=== PATIENT | male | born 1945 | race Caucasian/White ===

== ENCOUNTER 2017-05-18 22:22 | Observation (INO) ==
[2017-05-18 22:47] LABS: Bilirubin,Urine Small (Negative); Blood,Urine Large (Negative); Clarity,Urine Cloudy (Clear); Color,Urine Dark Yellow (Yellow); Glucose,Urine (UA) Normal (Normal); Ketones,Urine 15 mg/dL (Negative); Leukocyte Esterase,Urine Small (Negative); Nitrite,Urine Negative (Negative); PH,Urine 5.5 pH Units (5.0-8.0); Protein,Urine 30 mg/dL (Neg-Trace); Specific Gravity,Urine 1.027 (1.010-1.025); Urobilinogen,Urine Normal (Normal)
[2017-05-18] MEDS ORDERED: 0.9 % Sodium Chloride 1,000 ML IVC ONE (22:49)
[2017-05-18] MEDS ORDERED: *HR* Morphine 2 MG/ML SYRINGE IVP ONE (22:49)
[2017-05-18] MEDS ORDERED: Ondansetron 4 MG/2 ML VIAL IVP ONE ×2 (22:49→23:16)
[2017-05-18 22:50] LABS: Bacteria,Urine None Seen per hpf (None-Few); Hyaline Casts,Urine None Seen per lpf (None-Few); RBC,Urine TNTC per hpf (0-3); Squamous Epithelial Cell,Urine Moderate per lpf (None-Few)
[2017-05-18 23:08] LABS: Basophils % 0.2 %; Eosinophils % 0.3 %; Hematocrit 52.2 % (37.5-50.1); Hemoglobin 17.6 g/dL (12.9-16.9); Immature Granulocytes % 0.4 % (0-4); Lymphocytes # 0.9 K/mcL (0.6-4.6); Lymphocytes % 7.6 %; Mean Corpuscular HGB Conc 33.7 g/dL (31.6-35.5); Mean Corpuscular Hemoglobin 28.8 pg (28.0-33.3); Mean Corpuscular Volume 85.3 fL (83.0-100.0); Mean Platelet Volume 9.7 fL (9.4-12.4); Monocytes # 0.6 K/mcL (0.0-1.3); Monocytes % 5.1 %; Neutrophils # 10.5 K/mcL (1.6-8.9); Platelet Count 278 K/mcL (140-400); Red Blood Count 6.12 M/mcL (4.19-5.50); Red Cell Distribution Width 12.4 % (11.5-14.5); Segmented Neutrophils % 86.4 %
[2017-05-18] MEDS ORDERED: Ketorolac 15 MG/ML VIAL IVP ONE (23:16)
[2017-05-18 23:23] LABS: Alanine Aminotransferase 17 Units/L (0-55); Albumin 4.5 g/dL (3.5-5.0); Albumin/Globulin Ratio 1.4 (1.1-2.2); Alkaline Phosphatase 79 Units/L (38-126); Aspartate Amino Transferase 15 Units/L (5-34); BUN/Creatinine Ratio 17 (6-26); Bilirubin,Direct 0.4 mg/dL (0.0-0.5); Bilirubin,Indirect 0.5 mg/dL (0.0-1.2); Bilirubin,Total 0.9 mg/dL (0.2-1.2); Blood Urea Nitrogen 20 mg/dL (8-26); Carbon Dioxide 23 mEq/L (19-29); Chloride 105 mEq/L (98-109); Globulin 3.2 g/dL (2.4-3.5); Glucose 142 mg/dL (70-99); Osmolality,Calculated 295 (280-300); Potassium 4.1 mEq/L (3.5-4.5); Sodium 140 mEq/L (136-145); Total Protein 7.7 g/dL (6.0-8.3); eGFR For African Americans > 60 (> 60); eGFR For Non-African Americans > 60 (> 60)
--- NOTE | 2017-05-18 23:24 | Emergency Department Note ---
Disposition Clinical Impression: Ureterolithiasis Disposition: Admitted As Inpatient Condition: Good Abdominal Pain HPI - General Chief Complaint: ED Abdominal Pain Stated Complaint: L Flank Pain Time Seen by Provider: 05/18/17 22:31 Source: patient, family Mode of arrival: private vehicle Limitations: no limitations Nursing Notes Reviewed: Yes Vital Signs Reviewed: Yes - History of Present Illness Pt Subjective Complaint: flank pain Onset (ago): hour(s) Consistency: constant Location: L flank Pain Severity: severe Pain Scale: 7 Quality: stabbing Radiation: LLQ Improves with: nothing Worsens with: nothing Context: history of similar episodes (once, about 10 years ago - kidney stone) Associated symptoms: Reports: nausea, vomiting. Denies: diarrhea, fever, chills , constipation, dysuria, hematemesis, hematochezia, melena, hematuria, anorexia , syncope Treatments prior to arrival: none - Related Data Previous Rx's Medication Instructions Recorded Acetaminophen [Tylenol] 500 mg PO Q6HR PRN #20 tablet 03/06/17 Allergies Allergy/AdvReac Type Severity Reaction Status Date / Time No Known Allergies Allergy Verified 05/18/17 22:27 All systems ED: reviewed and negative except as stated. Review of Systems: As Per HPI Constitutional: Denies: fever, chills Cardiovascular: Denies: chest pain, palpitations Respiratory: Denies: dyspnea Gastrointestinal: Reports: as per HPI, abdominal pain, nausea, vomiting. Denies : diarrhea Genitourinary: Denies: urgency, dysuria, frequency, hematuria, discharge Musculoskeletal: Reports: as per HPI, back pain. Denies: neck pain, joint swelling, arthralgia Integumentary: Denies: rash Neurological: Denies: headache Hematological/Lymphatic: Reports: easy bruising. Denies: easy bleeding Abdominal Pain PMH - Past Medical History Medical history: Reports: asthma, diabetes, GERD, hypertension, kidney stones, myocardial infarction Male Surgical History: Reports: no surgical history Psychiatric history: Reports: no psych history - Social History Smoking status: Never smoker Alcohol use: Reports: occasionally Drug use: Reports: none Physical Exam - General Limitations: no limitations General appearance: alert, in no apparent distress - Head Head exam: atraumatic, normocephalic, normal inspection - Eye Eye exam: Present: normal appearance, PERRL. Absent: scleral icterus, conjunctival injection, periorbital swelling - ENT ENT exam: mucous membranes moist - Neck Neck exam: Present: normal inspection - Chest Chest inspection: Present: normal inspection - Respiratory Respiratory exam: Present: normal lung sounds bilaterally. Absent: respiratory distress - Cardiovascular Cardiovascular exam: Present: regular rate, normal rhythm, normal heart sounds - Abdominal Exam Abdominal exam: Present: soft, tenderness, normal bowel sounds. Absent: distention, guarding, rebound, rigidity, mass, pulsatile mass Abdominal tenderness: Present: LLQ, mild - Extremities Exam Extremities exam: Present: normal inspection - Back Exam Back exam: Present: normal inspection, CVA tenderness (L) - Neurological Exam Neurological exam: Present: alert, oriented X3, CN II-XII intact - Psychiatric Psychiatric exam: Present: normal affect, normal mood - Skin Skin exam: Present: warm, dry, intact, normal color Course Course Narrative: Patient presents from home with family for evaluation of acute onset of Left flank pain with intermittent N/V that began at 9pm while sitting at a computer. He denies fever, chills, urinary retention, diarrhea. Last oral intake was at lunch time. He has had pain like this in the past - about 10 years ago - he was diagnosed with a kidney stone, which he passed. Will check labs, obtain a CT and treat his symptoms. Pain and nausea were better transiently. Both returned. More meds given. Labs show hematuria, polycythemia, and mildly elevated blood glucose. - Consultations Consultation #1: Hospitalist consulted for admission Time: 00:27 Vital Signs Temperature 97.5 F L 05/18/17 22:24 Pulse Rate 61 05/18/17 22:24 Respiratory Rate 16 05/18/17 22:24 Blood Pressure 158/86 05/18/17 22:24 O2 Sat by Pulse Oximetry 99 05/18/17 22:24 Temperature 98.3 F 05/19/17 01:00 Pulse Rate 61 05/18/17 23:27 Respiratory Rate 18 05/19/17 01:00 Blood Pressure 138/78 05/19/17 01:00 O2 Sat by Pulse Oximetry 97 05/18/17 23:27 Oxygen Delivery Oxygen Delivery Room Air Abdominal Pain - Lab Data Result diagrams: 05/18/17 22:52 05/18/17 22:52 Lab Results 05/18/17 05/18/17 05/18/17 Range/Units 22:37 22:52 22:52 WBC 12.2 H (4.3-11.1) K/mcL RBC 6.12 H (4.19-5.50) M/mcL Hgb 17.6 H (12.9-16.9) g/dL Hct 52.2 H (37.5-50.1) % MCV 85.3 (83.0-100.0) fL MCH 28.8 (28.0-33.3) pg MCHC 33.7 (31.6-35.5) g/dL RDW 12.4 (11.5-14.5) % Plt Count 278 (140-400) K/mcL MPV 9.7 (9.4-12.4) fL Immature Gran % 0.4 (0-4) % Seg Neutrophils % 86.4 % Lymphocytes % 7.6 % Monocytes % 5.1 % Eosinophils % 0.3 % Basophils % 0.2 % Neutrophils # 10.5 H (1.6-8.9) K/mcL Lymphocytes # 0.9 (0.6-4.6) K/mcL Monocytes # 0.6 (0.0-1.3) K/mcL Eosinophils # 0.0 (0.0-0.6) K/mcL Basophils # 0.0 (0.0-0.2) K/mcL Sodium 140 (136-145) mEq/L Potassium 4.1 (3.5-4.5) mEq/L Chloride 105 (98-109) mEq/L Carbon Dioxide 23 (19-29) mEq/L BUN 20 (8-26) mg/dL Creatinine 1.18 (0.72-1.25) mg/dL Est GFR ( Amer) > 60 (> 60) Est GFR (Non-Af Amer) > 60 (> 60) BUN/Creatinine Ratio 17 (6-26) Glucose 142 H (70-99) mg/dL Calculated Osmolality 295 (280-300) Calcium 10.0 (8.6-10.8) mg/dL Total Bilirubin 0.9 (0.2-1.2) mg/dL Direct Bilirubin 0.4 (0.0-0.5) mg/dL Indirect Bilirubin 0.5 (0.0-1.2) mg/dL AST 15 (5-34) Units/L ALT 17 (0-55) Units/L Alkaline Phosphatase 79 (38-126) Units/L Serum Total Protein 7.7 (6.0-8.3) g/dL Albumin 4.5 (3.5-5.0) g/dL Globulin 3.2 (2.4-3.5) g/dL Albumin/Globulin Ratio 1.4 (1.1-2.2) Urine Color Dark Yellow (Yellow) Urine Clarity Cloudy A (Clear) Urine pH 5.5 (5.0-8.0) pH Units Ur Specific [place] 1.027 H (1.010-1.025) Urine Protein 30 H (Neg-Trace) mg/dL Urine Glucose (UA) Normal (Normal) mg/dL Urine Ketones 15 H (Negative) mg/dL Urine Blood Large H (Negative) Urine Nitrite Negative (Negative) Urine Bilirubin Small H (Negative) Urine Urobilinogen Normal (Normal) mg/dL Ur Leukocyte Esterase Small H (Negative) Urine Microscopic RBC TNTC H (0-3) per hpf Urine Microscopic WBC 3-5 H (0-3) per hpf Ur Squamous Epith Cells Moderate H (None-Few) per lpf Urine Bacteria None Seen (None-Few) per hpf Hyaline Casts None Seen (None-Few) per lpf Ur Culture Indicated? YES A (NO) Attestation Statement - Attestation Attestation: I, Nando Grigsby, examined this patient and my medical decision-making was reviewed with the BENDER HAND/PA/Advanced Practice Nurse/Resident Physician. I agree with the documented findings, disposition and treatment plan as described except to the extent set forth below. 71-year-old male presents to the emergency department with concerns of left flank pain for multiple hours prior to arrival. +associated nausea and vomiting. Abdomen has generalized mild tender to palpation emergency department. CT of the abdomen and pelvis reveals a 5 mm ureteral stone causing obstruction. Patient does not feel comfortable returning home because he has had stones which were needed surgical removal in the past. PA admitted the patient to the hospitalist for further care and evaluation.
--- NOTE | 2017-05-19 01:47 | Internal Med History&Physical ---
Date of Encounter: 05/19/17 Time of Encounter: 01:45 Assessment and Plan (1) Left ureteral calculus Current visit: Yes Status: Acute He has a 5 mm left UVJ stone with hydronephrosis and hydroureter. It is small enough that it could pass with medical measures and therefore I will place the patient in observation, we will treat him with aggressive IV fluid hydration, IV morphine for pain, Zofran for nausea and start Flomax 0.4 mg daily. We will strain the urine and send the stone for testing. We will consult urology in the morning in case the stone does not pass. Keep him nothing by mouth. (2) Coronary artery disease Current visit: Yes Status: Acute Continue with dual antiplatelet therapy. Qualifiers: Coronary Disease-Associated Artery/Lesion type: [place] artery [place] vs. transplanted heart: [place] heart Associated angina: without angina Qualified Code(s): I25.10 - Atherosclerotic heart disease of [place] coronary artery without angina pectoris (3) Dehydration Current visit: Yes Status: Acute CBC reveals hemoconcentration and clinically appears dry consistent with dehydration. We will treat him with aggressive IV fluid hydration. (4) Asthma Current visit: Yes Status: Acute Inhaled albuterol when necessary. Qualifiers: Asthma severity: mild intermittent Asthma complication type: uncomplicated Qualified Code(s): J45.20 - Mild intermittent asthma, uncomplicated (5) DVT prophylaxis Current visit: Yes Status: Acute Encourage early ambulation. No pharmacological prophylaxis needed. (6) BPH (benign prostatic hyperplasia) Current visit: Yes Status: Acute I suspect some BPH based on symptoms. I recommend Flomax 0.4 daily upon discharge for one month and follow-up with urology. Qualifiers: Lower urinary tract symptom presence: symptoms present Lower urinary tract symptom detail: weak urinary stream Qualified Code(s): N40.1 - Benign prostatic hyperplasia with lower urinary tract symptoms; R39.12 - Poor urinary stream Internal Medicine - H&P: HPI Chief complaint: Left flank pain Admitted From: Emergency Dept Plans for Post Hospital Care: Home History of present illness: Mr. Roque is a 71 year old male with past medical history of hypertension, hypercholesterolemia and coronary artery disease status post LA and stent placement who presented to the hospital due to 1 day of severe sharp left flank pain associated with chills and diaphoresis, mild nausea no vomiting. Denies fevers. Denies dysuria hematuria and frequency, reports weak urinary stream. Review of systems: Seasonal allergies and wheezing secondary to asthma otherwise negative Family history positive for depression in several family members, negative for premature coronary artery disease. Social history: Lifelong nonsmoker, denies alcohol abuse denies recreational drug use Past Med Surg Social Fam HX - Past Medical History Medical history: asthma, diabetes, GERD, hypertension, kidney stones, myocardial infarction Psychiatric history: no psych history - Past Surgical History Surgical History: non-contributory - Social History Smoking Status: Never smoker Smokeless Tobacco Status: No Alcohol use: occasionally Drug use: none Internal Medicine - H&P: Meds Acetaminophen [Tylenol] 500 mg PO Q6HR PRN #20 tablet 03/06/17 [Rx] Allergies No Known Allergies Allergy (Verified 05/18/17 22:27) All Systems PM: A 10-system review of systems was performed and is negative for pertinent findings except as documented above in the HPI. - Constitutional Vitals: Temp Pulse Resp BP Pulse Ox 98.3 F 61 18 138/78 97 05/19/17 01:00 05/18/17 23:27 05/19/17 01:00 05/19/17 01:00 05/18/17 23:27 - Eye Eye exam: Present: PERRL, conjuntiva pink, sclera anicteric Pupils: Present: PERRL - Respiratory Respiratory exam: Present: CTAB. Absent: accessory muscle use, rales, rhonchi, wheezes - Cardiovascular Cardiovascular exam: Present: RRR, +S1, +S2. Absent: diastolic murmur, gallop, rubs, systolic murmur - GI/Abdominal GI/Abdominal exam: Present: normal bowel sounds, soft, no peritoneal signs. Absent: distended, tenderness - Extremities Exam Extremities exam: Present: warm, radial pulses palpable and symmetrical. Absent : calf tenderness, cyanotic, pedal edema - Neurological Exam Neurological exam: Present: CN II-XII intact, oriented X3, no focal deficits. Absent: pronater drift, facial droop, speech deficit - Skin Skin exam: Present: dry, intact Internal Med - H&P Results - Labs CBC & Chem 7: 05/18/17 22:52 05/18/17 22:52 - Impressions CT of the abdomen of pelvis reviewed by myself shows a 0.5 cm ureteral stone just above the left UV junction with mild hydroureteronephrosis.
[2017-05-19] MEDS ORDERED: Ondansetron 4 MG/2 ML VIAL IVP PRN (01:54)
[2017-05-19] MEDS ORDERED: *HR* HYDROcodone/Acet 5/325 mg TABLET PO PRN (01:54)
[2017-05-19] MEDS ORDERED: Acetaminophen 325 MG TABLET PO PRN (01:54)
[2017-05-19] MEDS ORDERED: *HR* Morphine 2 MG/ML SYRINGE IVP PRN (01:54)
[2017-05-19] MEDS ORDERED: Naloxone 0.4 MG/ML INJ IVP PRN (01:54)
[2017-05-19] MEDS: 0.9 % Sodium Chloride 1,000 ML IVC SCH ×2 (02:42→06:39)
[2017-05-19 05:49] LABS: Basophils % 0.2 %; Hematocrit 45.8 % (37.5-50.1); Immature Granulocytes % 0.4 % (0-4); Lymphocytes # 0.5 K/mcL (0.6-4.6); Lymphocytes % 5.1 %; Mean Corpuscular HGB Conc 33.4 g/dL (31.6-35.5); Mean Corpuscular Hemoglobin 28.5 pg (28.0-33.3); Mean Corpuscular Volume 85.4 fL (83.0-100.0); Mean Platelet Volume 10.3 fL (9.4-12.4); Monocytes # 0.6 K/mcL (0.0-1.3); Monocytes % 5.8 %; Neutrophils # 9.2 K/mcL (1.6-8.9); Platelet Count 220 K/mcL (140-400); Red Blood Count 5.36 M/mcL (4.19-5.50); Red Cell Distribution Width 12.4 % (11.5-14.5); Segmented Neutrophils % 88.5 %
[2017-05-19 05:59] LABS: BUN/Creatinine Ratio 21 (6-26); Blood Urea Nitrogen 20 mg/dL (8-26); Carbon Dioxide 21 mEq/L (19-29); Chloride 109 mEq/L (98-109); Sodium 139 mEq/L (136-145)
[2017-05-19 06:00] LABS: Calcium 8.7 mg/dL (8.6-10.8); Glucose 112 mg/dL (70-99); Osmolality,Calculated 291 (280-300); eGFR For African Americans > 60 (> 60); eGFR For Non-African Americans > 60 (> 60)
[2017-05-19 06:05] LABS: Hemoglobin 15.3 g/dL (12.9-16.9)
--- NOTE | 2017-05-19 09:28 | Event Note ---
Date of Encounter: 05/19/17 Time of Encounter: 09:10 Doing well. Denies any pain today. NO nausea or vomiting. No fever or chills. Having good urine output. Continue IV fluids. Urology consult. Continue flomax.
[2017-05-19] MEDS: Aspirin Enteric Coated 81 MG Tablet PO SCH (09:41)
--- NOTE | 2017-05-19 10:28 | Urology - Consult Note ---
Date of Encounter: 05/19/17 Time of Encounter: 10:25 - Assessment and Plan (1) Hydronephrosis of left kidney Current Visit: Yes Status: Acute Assessment and plan: secondary to stone will resolve with either passage or removal (2) Left ureteral calculus Current Visit: Yes Status: Acute Assessment and plan: Patient will continue with medical expulsion therapy today. If patient fails to pass the stone by tomorrow may consider stone extraction. Urology CN:HPI Consult date: 05/19/17 Reason for consult Urology: Other (left ureteral stone) Requesting physician: John Worley History of present illness: Juan is a 71-year-old male with a history of recent admission to the hospital secondary to severe left-sided flank pain where he was found have a distal 3 x 5 mm ureteral stone on the left side. Patient had mild proximal hydronephrosis. No fevers. No nausea or vomiting. Past Med Surg Social Fam HX - Past Medical History Medical history: asthma, diabetes, GERD, hypertension, kidney stones, myocardial infarction Psychiatric history: no psych history - Past Surgical History Surgical History: non-contributory - Social History Smoking Status: Never smoker Smokeless Tobacco Status: No Alcohol use: occasionally Drug use: none Medications and Allergies Clopidogrel [Plavix] 75 mg PO DAILY 05/19/17 [History] Lisinopril [Zestril] 5 mg PO DAILY 05/19/17 [History] Metoprolol Succinate 25 mg PO DAILY 05/19/17 [History] Pantoprazole Sodium 40 mg PO 05/19/17 [History] Salmeterol Xinafoate [Serevent Diskus] 05/19/17 [History] Sertraline [Zoloft] 100 mg PO DAILY 05/19/17 [History] Vilazodone HCl [Viibryd] 40 mg PO DAILY 05/19/17 [History] Allergies No Known Allergies Allergy (Verified 05/18/17 22:27) Review of Systems - Constitutional no chills, no fever(s) - EENT Nose, mouth and throat: no dizziness - Cardiovascular no chest pain - Respiratory no cough - Gastrointestinal abdominal pain - Musculoskeletal back pain - Integumentary as per HPI, no erythema - Neurological no confusion Exam Initial Vital Signs Temp Pulse Resp BP Pulse Ox 97.5 F L 61 16 158/86 99 05/18/17 22:24 05/18/17 22:24 05/18/17 22:24 05/18/17 22:24 05/18/17 22:24 - General physical appearance Present: well developed - Eyes Present: PERRL - ENT Present: normal nares - Neck Present: no masses - Respiratory Present: normal respiratory effort - Cardiovascular Cardiovascular exam IM: RRR - Abdomen Abdomen: Present: soft - Integumentary Present: no rash - Neurologic Present: normal coordination Urology Results - Labs 05/19/17 04:13 05/19/17 04:13 Abnormal lab results Neutrophils # 9.2 K/mcL (1.6-8.9) H 05/19/17 04:13 Lymphocytes # 0.5 K/mcL (0.6-4.6) L 05/19/17 04:13 Glucose 112 mg/dL (70-99) H 05/19/17 04:13 POC Glucose 105 (58-89) H 05/19/17 06:14 Urine Clarity Cloudy (Clear) A 05/18/17 22:37 Ur Specific [place] 1.027 (1.010-1.025) H 05/18/17 22:37 Urine Protein 30 mg/dL (Neg-Trace) H 05/18/17 22:37 Urine Ketones 15 mg/dL (Negative) H 05/18/17 22:37 Urine Blood Large (Negative) H 05/18/17 22:37 Urine Bilirubin Small (Negative) H 05/18/17 22:37 Ur Leukocyte Esterase Small (Negative) H 05/18/17 22:37 Urine Microscopic RBC TNTC per hpf (0-3) H 05/18/17 22:37 Urine Microscopic WBC 3-5 per hpf (0-3) H 05/18/17 22:37 Ur Squamous Epith Cells Moderate per lpf (None-Few) H 05/18/17 22:37 Ur Culture Indicated? YES (NO) A 05/18/17 22:37 Diabetes panel 05/19/17 Range/Units 04:13 Sodium 139 (136-145) mEq/L Potassium 4.0 (3.5-4.5) mEq/L Chloride 109 (98-109) mEq/L Carbon Dioxide 21 (19-29) mEq/L BUN 20 (8-26) mg/dL Creatinine 0.96 (0.72-1.25) mg/dL Glucose 112 H (70-99) mg/dL Calcium 8.7 (8.6-10.8) mg/dL Calcium panel 05/19/17 Range/Units 04:13 Calcium 8.7 (8.6-10.8) mg/dL Pituitary panel 05/19/17 Range/Units 04:13 Sodium 139 (136-145) mEq/L Potassium 4.0 (3.5-4.5) mEq/L Chloride 109 (98-109) mEq/L Carbon Dioxide 21 (19-29) mEq/L BUN 20 (8-26) mg/dL Creatinine 0.96 (0.72-1.25) mg/dL Glucose 112 H (70-99) mg/dL Calcium 8.7 (8.6-10.8) mg/dL Adrenal panel 05/19/17 Range/Units 04:13 Sodium 139 (136-145) mEq/L Potassium 4.0 (3.5-4.5) mEq/L Chloride 109 (98-109) mEq/L Carbon Dioxide 21 (19-29) mEq/L BUN 20 (8-26) mg/dL Creatinine 0.96 (0.72-1.25) mg/dL Glucose 112 H (70-99) mg/dL Calcium 8.7 (8.6-10.8) mg/dL All other labs normal. - Imaging CT scan - abdomen: image reviewed CT scan - pelvis: image reviewed Consult Discharge Plan - Plan Referrals: Pierre Galeana Jr, MD [Primary Care Provider] -
--- NOTE | 2017-05-20 07:55 | Urology Progress Note ---
Date of Encounter: 05/20/17 Time of Encounter: 07:54 - Assessment and Plan (1) Hydronephrosis of left kidney Current Visit: Yes Status: Acute Assessment and plan: will get kub today. (2) Left ureteral calculus Current Visit: Yes Status: Acute Progress Note Narrative: patient seen. no pain. states has not passed stone. Objective Initial Vital Signs Temp Pulse Resp BP Pulse Ox 97.5 F L 61 16 158/86 99 05/18/17 22:24 05/18/17 22:24 05/18/17 22:24 05/18/17 22:24 05/18/17 22:24 - Labs 05/19/17 04:13 05/19/17 04:13 Consult Discharge Plan - Plan Referrals: Pierre Galeana Jr, MD [Primary Care Provider] -
--- NOTE | 2017-05-20 11:33 | Anesthesia Evaluation PreOp ---
Date of Encounter: 05/20/17 Time of Encounter: 11:30 - Past History Planned Operation: Left Ureteral stone Extraction Cardiac History: AL, HTN, Cardiac Stent (x1 LAURA 2008), Other (CAD) Pulmonary History: Asthma [employer] History: Denies Any Significant HX Other Medical History: Renal (Stones), Diabetes Type II, GERD Anesthesia History: No Prior Anesthetic Complications, Past Anesthesia Alcohol Use: occasionally Drug use: none Medications and Allergies Clopidogrel [Plavix] 75 mg PO DAILY 05/19/17 [History] Lisinopril [Zestril] 5 mg PO DAILY 05/19/17 [History] Metoprolol Succinate 25 mg PO DAILY 05/19/17 [History] Pantoprazole Sodium 40 mg PO DAILY 05/19/17 [History] Salmeterol Xinafoate [Serevent Diskus] 1 puff IH BID 05/19/17 [History] Sertraline [Zoloft] 100 mg PO DAILY 05/19/17 [History] Vilazodone HCl [Viibryd] 40 mg PO DAILY 05/19/17 [History] Allergies No Known Allergies Allergy (Verified 05/18/17 22:27) - Meds/Allergy Pre-op Review Medications Reviewed: Yes Allergies Reviewed: Yes Beta Blockers on Current Med List: No Anesthesia Results - Labs 05/19/17 04:13 05/19/17 04:13 Anesthesia Exam O2 Sat Weight 69.6 kg O2 Sat by Pulse Oximetry 95 O2 Sat by Pulse Oximetry 95 O2 Sat by Pulse Oximetry 96 O2 Sat by Pulse Oximetry 96 Vital Signs Temp Pulse Resp BP Pulse Ox 97.5 F L 61 16 158/86 99 05/18/17 22:24 05/18/17 22:24 05/18/17 22:24 05/18/17 22:24 05/18/17 22:24 Vital Signs/O2 Sat, Most Current Temp Pulse Resp BP Pulse Ox 97.8 F 58 18 118/50 95 05/20/17 06:44 05/20/17 06:44 05/20/17 06:44 05/20/17 06:44 05/20/17 06:44 Height: 6'9" Weight: 153 - HEENT Pupil (Motor): Pupils equal, EOMI Mallampati: II Teeth: Normal Oral Opening: Greater than 3 - [employer] LOC: Oriented [employer] Motor: Normal RUE, Normal LUE, Normal RLE, Normal LLE, Normal Face [employer] Sensory: Normal: RUE, LUE, RLE, LLE, Face - Cardiac Rhythm: Regular Murmur: None JVD: No Carotid Bruit: No - Pulmonary Breath Sounds: bilateral Clear Respiratory Effort: Symmetrical Anesthesia Assess/Plan ASA Score: 3 Modified David Scale for Level of Consciousness: Cooperative, oriented, and tranquil Anesthetic Plan: General Autologous Blood: Yes Monitoring Plan: Standard Monitors Recovery Plan: PACU
[2017-05-20] MEDS ORDERED: *HR* Propofol 200 MG/20 ML VIAL IVP ONE (12:09)
[2017-05-20] MEDS ORDERED: Ondansetron 4 MG/2 ML VIAL ONE (12:09)
[2017-05-20] MEDS ORDERED: *HR* Midazolam HCl 2 MG/2 ML VIAL ONE (12:09)
[2017-05-20] MEDS ORDERED: Lidocaine -MPF 4% 5 ML AMPUL ONE (12:09)
[2017-05-20] MEDS ORDERED: Dexamethasone 4 MG/ML VIAL ONE (12:09)
[2017-05-20] MEDS ORDERED: *HR* FentaNYL (PF) 100 MCG/2 ML VIAL ONE (12:09)
[2017-05-20] MEDS ORDERED: Lidocaine -MPF 2% 2 ML VIAL ONE (12:09)
[2017-05-20] MEDS: Aspirin Enteric Coated 81 MG Tablet PO SCH (12:55)
[2017-05-20] MEDS ORDERED: ceFAZolin 2,000 MG in D5% in Water (Mini-Bag+) 100 ML IVPB ONE ×2 (13:24→15:21)
[2017-05-20] MEDS ORDERED: *HR* Promethazine 25 MG/ML VIAL IVP PRN (13:31)
[2017-05-20] MEDS: *HR* HYDROmorphone (PF) 1 MG/ML SYRINGE IVP PRN ×2 (14:07→14:12)
--- NOTE | 2017-05-20 14:33 | Anesthesia Evaluation Post Op ---
Date of Encounter: 05/20/17 Time of Encounter: 14:33 - Vital Signs Vital Signs: vss - Lungs Lungs: Clear Ascult./Percussion - Airway Airway: Non-obstructed - Cardiovascular Baseline Rhythm - Mental Status Mental Status: Alert & Oriented, Answers Appropriately - Pain Pain Scale used: [place] (Faces) - Nausea Vomiting Nausea Vomiting: Not Present - Hydration Hydration: Ice chips - Discharge PostOp Status: Transfer Patient to floor
[2017-05-20] MEDS ORDERED: CeFAZolin Pre 2,000 MG/100 ML 2,000 MG/100 ML BAG IVPB ONE (15:00)
[2017-05-20] MEDS ORDERED: Ondansetron 4 MG/2 ML VIAL IVP PRN (15:21)
[2017-05-20] MEDS ORDERED: Acetaminophen 325 MG TABLET PO PRN (15:21)
[2017-05-20] MEDS ORDERED: Naloxone 0.4 MG/ML INJ IVP PRN (15:21)
[2017-05-20] MEDS ORDERED: *HR* Morphine 2 MG/ML SYRINGE IVP PRN (15:21)
--- NOTE | 2017-05-20 16:13 | Electrocardiograph Report ---
[place] [id number] Test Date: 2017-05-20 Pat Name: Juan Roque Department: 115 Room: 3A12 Gender: M [employer]: [id number] : 1945 Requested By: Judson Lozano Order Number: [id number] Reading MD: Felice Jones MD Measurements Intervals [place] Rate: 58 P: 63 MD: 147 QRS: 16 QRSD: 82 T: 33 QT: 395 QTc: 392 Interpretive Statements SINUS BRADYCARDIA Electronically Signed On 05-20-2017 16:11:39 EDT by Felice Jones MD
--- NOTE | 2017-05-20 16:14 | Discharge Summary ---
Date of Encounter: 05/20/17 Time of Encounter: 16:12 - Discharge Diagnosis (1) Left ureteral calculus Priority: Primary Status: Acute (2) Coronary artery disease Priority: Secondary Status: Chronic Qualifiers: Coronary Disease-Associated Artery/Lesion type: [place] artery [place] vs. transplanted heart: [place] heart Associated angina: without angina Qualified Code(s): I25.10 - Atherosclerotic heart disease of [place] coronary artery without angina pectoris (3) Dehydration Priority: Secondary Status: Resolved (4) Asthma Priority: Secondary Status: Acute Qualifiers: Asthma severity: mild intermittent Asthma complication type: uncomplicated Qualified Code(s): J45.20 - Mild intermittent asthma, uncomplicated (5) DVT prophylaxis Priority: Secondary Status: Acute - Discharge Medications Prescriptions: HYDROcodone/Acet 5/325 mg [[place] 5-325 mg] 1 tab PO Q4HR PRN #10 tab PRN Reason: Moderate Pain (4-6) Home Medications: Clopidogrel [Plavix] 75 mg PO DAILY 05/19/17 [History] Lisinopril [Zestril] 5 mg PO DAILY 05/19/17 [History] Metoprolol Succinate 25 mg PO DAILY 05/19/17 [History] Pantoprazole Sodium 40 mg PO DAILY 05/19/17 [History] Salmeterol Xinafoate [Serevent Diskus] 1 puff IH BID 05/19/17 [History] Sertraline [Zoloft] 100 mg PO DAILY 05/19/17 [History] Vilazodone HCl [Viibryd] 40 mg PO DAILY 05/19/17 [History] HYDROcodone/Acet 5/325 mg [[place] 5-325 mg] 1 tab PO Q4HR PRN #10 tab 05/20/17 [ Rx] Allergies/Adverse Reactions: Allergies No Known Allergies Allergy (Verified 05/18/17 22:27) Procedures/tests Complete & Pending: Procedures Performed prior 72 hours Category Date Time Status ECG 12 lead ECG [ECG] Routine Y 05/20/17 11:50 Completed Date of admission: 05/19/17 00:48 Primary care physician: Pierre Galeana Jr, MD Consults: 05/19/17 01:56 Consult to Physician [CONS] Routine Consulting Provider: Eric Montano Reason for Consult: Left UVJ stone with hydroureteronephrosis Call Completed: No Discharging clinician: Judson Lozano Anticipated date of discharge: 05/21/17 - Patient Status Disposition: Home, Self-Care Condition: Good Functional capacity at discharge: independent ambulation Overall status at discharge: patient is progressing back to baseline - Discharge Instructions Follow Up With: Eric Montano MD [Partnered Physician] - 06/04/17 8:45 am (in 2-3 weeks) Pierre Galeana Jr, MD [Primary Care Provider] - 05/31/17 11:00 am (in 1-2 weeks) Additional Instructions: Remove stent in 2-3 days when you pass stone. - Diet and Activity Activity: increase activity as tolerated Diet: advance to your usual diet, low fat, low cholesterol, low salt diet Hospital course: Mr. Roque is a 71 year old male patient with a history of asthma, diabetes, hypertension and was hospitalized here with left renal colic. Patient had a 5 mm stone in the distal ureter. Patient was treated with IV fluids, Flomax and supportive care. He was evaluated by urology and underwent ureteral stent placement today. He is doing much better and will be discharged home tomorrow morning. Patient did not have any signs of pyelonephritis or urinary tract infection related to the ureteral stone. He does not require any further antibiotics. He can remove the rectal stand by himself in 2-3 days and he can follow up with urology in 2 weeks after discharge. - Time Spent with Patient Total time spent providing and/or coordinating discharge services: Less than 30 minutes (20 min) - Constitutional Vitals: Temp Pulse Resp BP Pulse Ox 98 F 52 18 198/84 96 05/20/17 15:25 05/20/17 15:25 05/20/17 15:25 05/20/17 15:25 05/20/17 15:25 General appearance: Present: cooperative, A&O X 3, answers questions appropriately - Neck Neck exam general surgery: Present: supple, trachea midline. Absent: lymphadenopathy - Respiratory Respiratory exam: Present: CTAB. Absent: accessory muscle use, rales, rhonchi, wheezes - Cardiovascular Cardiovascular exam: Present: RRR, +S1, +S2. Absent: diastolic murmur, gallop, rubs, systolic murmur - GI/Abdominal GI/Abdominal exam: Present: normal bowel sounds, soft, no peritoneal signs. Absent: distended, tenderness
[2017-05-20] MEDS ORDERED: Bisacodyl 10 MG RECTAL SUPPOSITORY RC ONE (18:27)
[2017-05-20] MEDS: *HR* HYDROcodone/Acet 5/325 mg TABLET PO PRN ×2 (18:34→23:33)
[2017-05-20] MEDS ORDERED: SEREVENT IH SCH (22:00)
[2017-05-21 04:33] VITALS: BP 133/63
--- NOTE | 2017-05-21 07:13 | Urology Progress Note ---
Date of Encounter: 05/21/17 Time of Encounter: 07:12 - Assessment and Plan (1) Hydronephrosis of left kidney Current Visit: Yes Status: Acute Assessment and plan: resolved (2) Left ureteral calculus Current Visit: Yes Status: Acute Assessment and plan: removed. patient ok to remove stent at earliest tomorrow. f/u in 2-3 weeks. Progress Note Narrative: POD 1 from left stone extraction. pain much better. still with some stent discomfort. Objective Initial Vital Signs Temp Pulse Resp BP Pulse Ox 97.5 F L 61 16 158/86 99 05/18/17 22:24 05/18/17 22:24 05/18/17 22:24 05/18/17 22:24 05/18/17 22:24 - General physical appearance Present: well developed - Abdomen Present: soft - Labs 05/19/17 04:13 05/19/17 04:13 - VTE Documentation of Mechanical Device: Intermittent pneumatic compression device Consult Discharge Plan - Plan Additional Instructions: Remove stent in 2-3 days when you pass stone. Referrals: Eric Montano MD [Partnered Physician] - 06/04/17 8:45 am (in 2-3 weeks) Pierre Galeana Jr, MD [Primary Care Provider] - 05/31/17 11:00 am (in 1-2 weeks) Prescriptions: HYDROcodone/Acet 5/325 mg [[place] 5-325 mg] 1 tab PO Q4HR PRN #10 tab PRN Reason: Moderate Pain (4-6)
[2017-05-21] MEDS: *HR* HYDROcodone/Acet 5/325 mg TABLET PO PRN (07:21)
[2017-05-21] MEDS ORDERED: Metoprolol XL (24 HR) Succ 25 MG TAB.ER.24H PO SCH ×2 (09:00)
[2017-05-21] MEDS ORDERED: Aspirin Enteric Coated 81 MG Tablet PO SCH (09:00)
--- NOTE | 2017-05-21 09:57 | Internal Med Progress Note ---
Date of Encounter: 05/21/17 Time of Encounter: 09:52 - Assessment and plan (1) Left ureteral calculus Current Visit: Yes Status: Acute (2) Coronary artery disease Current Visit: Yes Status: Chronic Qualifiers: Coronary Disease-Associated Artery/Lesion type: [place] artery [place] vs. transplanted heart: [place] heart Associated angina: without angina Qualified Code(s): I25.10 - Atherosclerotic heart disease of [place] coronary artery without angina pectoris (3) Asthma Current Visit: Yes Status: Acute Qualifiers: Asthma severity: mild intermittent Asthma complication type: uncomplicated Qualified Code(s): J45.20 - Mild intermittent asthma, uncomplicated (4) DVT prophylaxis Current Visit: Yes Status: Acute - Subjective Interval history: Pt is a 71y/o male admitted for left renal colic. He was followed by urology and underwent ureteral stent placement. His presenting symptoms improved and he was discharged to home yesterday with follow up with urology and PCP. Pt refused discharge yesterday. At this time, he is ambulating well around the room and denies any distress at this time. He will be discharged from the hospital today. Pt reported of constipation for which patient is recommended to take metamucil, and he states he will get that over the counter. he also requests a prescription for colace. While the patient is on narcotics, will prescribe colace prn constipation. Pt will be discharged to home today. - Constitutional Vitals: Temp Pulse Resp BP Pulse Ox 98.4 F 68 18 133/63 94 05/21/17 06:28 05/21/17 06:28 05/21/17 06:28 05/21/17 04:23 05/21/17 06:28 General appearance: Present: A&O X 3, no acute distress, answers questions appropriately - Head Head exam: Present: atraumatic, normocephalic - Eye Eye exam: Present: conjuntiva pink, sclera anicteric - Cardiovascular Cardiovascular exam: Present: RRR, +S1, +S2 - GI/Abdominal GI/Abdominal exam: Present: normal bowel sounds, soft, no peritoneal signs. Absent: distended, tenderness - Extremities Exam Extremities exam: Present: radial pulses palpable and symmetrical. Absent: calf tenderness Internal Medicine: Result - Labs CBC & Chem 7: 05/19/17 04:13 05/19/17 04:13 - Impressions Impressions KUB X-Ray 05/20/17 07:50 IMPRESSION: Persistent apparent 4 mm calculus within the distal left ureter. D/ / 05/20/2017 08:31:04 Gianluca Sellers MD / lainey Interpreting Provider: Gianluca Sellers MD Fluoroscopy 05/20/17 13:20 IMPRESSION: Intraprocedural fluoroscopic spot images as above. See separate procedure report for more information. D/ / 05/20/2017 14:31:40 David De La Rosa MD / lisa Interpreting Provider: David De La Rosa MD X-Ray 05/20/17 13:20 IMPRESSION: Intraprocedural fluoroscopic spot images as above. See separate procedure report for more information. D/ / 05/20/2017 14:31:40 David De La Rosa MD / lisa Interpreting Provider: David De La Rosa MD - VTE Documentation of Mechanical Device: Intermittent pneumatic compression device Consult Discharge Plan - Plan Additional Instructions: Remove stent in 2-3 days when you pass stone. Referrals: rEic Montano MD [Partnered Physician] - 06/04/17 8:45 am (in 2-3 weeks) Pierre Galeana Jr, MD [Primary Care Provider] - 05/31/17 11:00 am (in 1-2 weeks) Prescriptions: HYDROcodone/Acet 5/325 mg [[place] 5-325 mg] 1 tab PO Q4HR PRN #10 tab PRN Reason: Moderate Pain (4-6)
--- NOTE | 2017-05-27 10:49 | Operative Note ---
Date of procedure: 05/20/17 Pre-op diagnosis: left distal ureteral stone. Post-op diagnosis: same Procedure: Left ureteroscopic laser lithotripsy of stone, left ureteroscopic basket retrieval stone fragment, left 4.8 x 26 cm ureteral stent placement Anesthesia: NICHOLE Surgeon: Eric Montano Specimen: left ureteral stone Condition: stable Disposition: PACU Procedure in Detail: The patient was prepped and draped in normal sterile fashion after being placed in lithotomy position. I then inserted the cystoscope into the patient's bladder. I then cannulated the left ureter with a sensor wire. I then placed the semirigid ureteroscope into the ureter. Once I encountered the stone, I used the holmium laser to fragment the stone into multiple small pieces. I then used a Nitinol tipless basket to remove all stone fragments from the patient's ureter. Once this was done, the ureter was surveyed with no further stones seen. I then back fed a 4.8x26 ureteral stent into place on left side, with good curl seen in the kidney and in the bladder. This was placed using fluoroscopic guidance. A string was left for easy removal. The procedure was ended.
== END 2017-05-21 11:00 | disposition home or self-care (01) ==
LOC: EMEROO 22:22 → 3ANU 22:22 → SUATTDRO 05-19 00:48 → 3ANU 05-19 01:32
PROVIDERS: ADMIT Internal Medicine Hematology & Oncology; ATTEND Internal Medicine

== ENCOUNTER 2017-05-30 11:38 | Inpatient (IN) ==
--- NOTE | 2017-05-30 11:48 | Emergency Department Note ---
Disposition Clinical Impression: Suicidal ideation Depression Qualifiers: Depression Type: unspecified Qualified Code(s): F32.9 - Major depressive disorder, single episode, unspecified Disposition: Admitted As Inpatient Condition: Fair Referrals: NONE,PCP [Primary Care Provider] - Forms: ED Satisfaction Letter Time of Disposition: 14:47 Psych HPI - General Chief Complaint: ED Psychiatric Symptoms Stated Complaint: SI Time Seen by Provider: 05/30/17 11:39 Source: patient Mode of arrival: ambulatory Limitations: no limitations Nursing Notes Reviewed: Yes Vital Signs Reviewed: Yes - History of Present Illness HPI Narrative: 71-year-old who presents with depression suicidal ideation. Patient states that he is going through a dissolution and his estranged yesterday brought home mcnulty that were given to her by her boyfriend. The patient states he has nothing to live for nothing to look forward to and just like to end it all now. Pt complaint: suicidal ideation, feels depressed If medical clearance, reason: psychiatric condition Onset (ago): day(s) Duration: constant Improves with: none Worsens with: none Context: significant life stressor Associated Psychiatric Symptoms: depression, suicidal ideation Associated symptoms: Reports: denies other symptoms Traumatic symptoms: denies traumatic injury Treatments prior to arrival: none Self harm or harm to others: admits thoughts of self harm - Related Data Home Medications Medication Instructions Recorded Confirmed Clopidogrel [Plavix] 75 mg PO DAILY 05/19/17 05/19/17 Lisinopril [Zestril] 5 mg PO DAILY 05/19/17 05/19/17 Metoprolol Succinate 25 mg PO DAILY 05/19/17 05/19/17 Pantoprazole Sodium 40 mg PO DAILY 05/19/17 05/19/17 Salmeterol Xinafoate [Serevent 1 puff IH BID 05/19/17 05/19/17 Diskus] Sertraline [Zoloft] 100 mg PO DAILY 05/19/17 05/19/17 Vilazodone HCl [Viibryd] 40 mg PO DAILY 05/19/17 05/19/17 Previous Rx's Medication Instructions Recorded HYDROcodone/Acet 5/325 mg [[place] 1 tab PO Q4HR PRN #10 tab 05/20/17 5-325 mg] Docusate [Colace] 100 mg PO DAILY PRN #10 capsule 05/21/17 Allergies Allergy/AdvReac Type Severity Reaction Status Date / Time No Known Allergies Allergy Verified 05/18/17 22:27 All systems ED: reviewed and negative except as stated. Constitutional: Denies: fever, chills, weakness, weight change Eyes: Denies: eye pain, eye discharge, vision change ENT ED: Denies: ear pain, throat pain, dental pain, hearing loss, epistaxis, congestion, dysphagia Cardiovascular: Denies: chest pain, palpitations, dyspnea on exertion, edema, syncope Respiratory: Denies: cough, dyspnea, wheezes, hemoptysis, stridor Gastrointestinal: Denies: abdominal pain, nausea, vomiting, diarrhea, constipation, hematemesis, melena, hematochezia Genitourinary: Denies: urgency, dysuria, frequency, hematuria Musculoskeletal: Denies: back pain, neck pain, arthralgia, myalgia Integumentary: Denies: rash, abrasion, lesions Neurological: Denies: headache, weakness, numbness, paresthesias, confusion, abnormal gait, vertigo Psychiatric: Reports: depression, suicidal thoughts. Denies: anxiety, homicidal thoughts, auditory hallucinations, visual hallucinations Endocrine: Denies: fatigue Hematological/Lymphatic: Denies: easy bleeding, easy bruising Allergic/Immunologic: Denies: facial swelling, urticaria Past Medical History - Past Medical History Medical history: Reports: asthma, diabetes, GERD, hypertension, kidney stones, myocardial infarction Surgical history: Reports: non-contributory Psychiatric history: Reports: no psych history - Social History Smoking Status: Never smoker Smokeless Tobacco Status: No Alcohol use: Reports: occasionally Drug use: Reports: none Physical Exam - General Limitations: no limitations General appearance: alert, in no apparent distress - Head Head exam: atraumatic, normocephalic, normal inspection - Eye Eye exam: Present: normal appearance, PERRL, EOMI - ENT ENT exam: normal exam, normal oropharynx, mucous membranes moist - Neck Neck exam: Present: normal inspection, full ROM, trachea midline - Chest Chest inspection: Present: normal inspection, symmetric chest wall rise - Respiratory Respiratory exam: Present: normal lung sounds bilaterally - Cardiovascular Cardiovascular exam: Present: regular rate, normal rhythm, normal heart sounds - Abdominal Exam Abdominal exam: Present: soft, Non-Tender. Absent: tenderness, distention, guarding, rebound, rigidity - Extremities Exam Extremities exam: Present: normal inspection, full ROM. Absent: tenderness, pedal edema - Expanded Lower Extremity Exam Neurovascular/Tendon exam: Absent: motor deficit, sensory deficit, tendon deficit Gait: observed and normal - Back Exam Back exam: Present: normal inspection, full ROM. Absent: tenderness - Neurological Exam Neurological exam: Present: alert, oriented X3 - Psychiatric Psychiatric exam: Present: depressed, suicidal ideation - Skin Skin exam: Present: warm, dry, intact, normal color Course - Reevaluation(s) Reevaluation #1: The patient states to me that he just wants to and doesn't want anything further done. Time: 14:09 Reevaluation #2: 71-year-old with a lot of personal stress comes in stating that he wants to does not feel that has any hope. Patient clearly represents a risk to himself. Patient will require admission. Time: 14:46 - Consultations Consultation #1: Consultation with psychiatry the patient will be admitted. Time: 14:47 Vital Signs Temperature 97.8 F 05/30/17 11:41 Pulse Rate 58 05/30/17 11:41 Respiratory Rate 18 05/30/17 11:41 Blood Pressure 173/96 05/30/17 11:41 O2 Sat by Pulse Oximetry 99 05/30/17 11:41 Temperature 97.8 F 05/30/17 11:41 Pulse Rate 58 05/30/17 11:41 Respiratory Rate 18 05/30/17 11:41 Blood Pressure 173/96 05/30/17 11:41 O2 Sat by Pulse Oximetry 99 05/30/17 11:41 Oxygen Delivery Oxygen Delivery Room Air Psych - Lab Data Result diagrams: 05/30/17 12:07 05/30/17 12:07 Lab Results 05/30/17 05/30/17 05/30/17 Range/Units 11:59 11:59 12:07 WBC 7.5 (4.3-11.1) K/mcL RBC 6.16 H (4.19-5.50) M/mcL Hgb 17.7 H (12.9-16.9) g/dL Hct 52.7 H (37.5-50.1) % MCV 85.6 (83.0-100.0) fL MCH 28.7 (28.0-33.3) pg MCHC 33.6 (31.6-35.5) g/dL RDW 12.2 (11.5-14.5) % Plt Count 291 (140-400) K/mcL MPV 9.5 (9.4-12.4) fL Immature Gran % 0.5 (0-4) % Seg Neutrophils % 78.1 % Lymphocytes % 12.6 % Monocytes % 7.9 % Eosinophils % 0.4 % Basophils % 0.5 % Neutrophils # 5.8 (1.6-8.9) K/mcL Lymphocytes # 0.9 (0.6-4.6) K/mcL Monocytes # 0.6 (0.0-1.3) K/mcL Eosinophils # 0.0 (0.0-0.6) K/mcL Basophils # 0.0 (0.0-0.2) K/mcL Sodium (136-145) mEq/L Potassium (3.5-4.5) mEq/L Chloride (98-109) mEq/L Carbon Dioxide (19-29) mEq/L BUN (8-26) mg/dL Creatinine (0.72-1.25) mg/dL Est GFR ( Amer) (> 60) Est GFR (Non-Af Amer) (> 60) BUN/Creatinine Ratio (6-26) Glucose (70-99) mg/dL Calculated Osmolality (280-300) Calcium (8.6-10.8) mg/dL Urine Color Dark Yellow (Yellow) Urine Clarity Slightly Hazy (Clear) Urine pH 6.0 (5.0-8.0) pH Units Ur Specific [place] 1.028 H (1.010-1.025) Urine Protein Negative (Neg-Trace) mg/dL Urine Glucose (UA) Normal (Normal) mg/dL Urine Ketones Negative (Negative) mg/dL Urine Blood Large H (Negative) Urine Nitrite Negative (Negative) Urine Bilirubin Small H (Negative) Urine Urobilinogen 2.0 H (Normal) mg/dL Ur Leukocyte Esterase Trace H (Negative) Urine Microscopic RBC TNTC H (0-3) per hpf Urine Microscopic WBC 5-15 H (0-3) per hpf Ur Squamous Epith Cells Moderate H (None-Few) per lpf Urine Bacteria None Seen (None-Few) per hpf Hyaline Casts None Seen (None-Few) per lpf Salicylates (15-30) mg/dL Urine Opiates Screen Negative (Ublbdm=395) ng/mL Acetaminophen (10-30) mcg/mL Ur Barbiturates Screen Negative (Afznbs=374) ng/mL Ur Phencyclidine Scrn Negative (Cutoff=25) ng/mL Ur Amphetamines Screen Negative (Ecjfky=4805) ng/mL U Benzodiazepines Scrn Negative (Sqikqv=067) ng/mL Urine Cocaine Screen Negative (Cutoff= 300) ng/mL U Marijuana (THC) Screen Negative (Cutoff = 50) ng/mL Ethyl Alcohol (0-10) mg/dL 05/30/17 Range/Units 12:07 WBC (4.3-11.1) K/mcL RBC (4.19-5.50) M/mcL Hgb (12.9-16.9) g/dL Hct (37.5-50.1) % MCV (83.0-100.0) fL MCH (28.0-33.3) pg MCHC (31.6-35.5) g/dL RDW (11.5-14.5) % Plt Count (140-400) K/mcL MPV (9.4-12.4) fL Immature Gran % (0-4) % Seg Neutrophils % % Lymphocytes % % Monocytes % % Eosinophils % % Basophils % % Neutrophils # (1.6-8.9) K/mcL Lymphocytes # (0.6-4.6) K/mcL Monocytes # (0.0-1.3) K/mcL Eosinophils # (0.0-0.6) K/mcL Basophils # (0.0-0.2) K/mcL Sodium 138 (136-145) mEq/L Potassium 4.1 (3.5-4.5) mEq/L Chloride 104 (98-109) mEq/L Carbon Dioxide 26 (19-29) mEq/L BUN 15 (8-26) mg/dL Creatinine 0.91 (0.72-1.25) mg/dL Est GFR ( Amer) > 60 (> 60) Est GFR (Non-Af Amer) > 60 (> 60) BUN/Creatinine Ratio 16 (6-26) Glucose 111 H (70-99) mg/dL Calculated Osmolality 288 (280-300) Calcium 10.4 (8.6-10.8) mg/dL Urine Color (Yellow) Urine Clarity (Clear) Urine pH (5.0-8.0) pH Units Ur Specific [place] (1.010-1.025) Urine Protein (Neg-Trace) mg/dL Urine Glucose (UA) (Normal) mg/dL Urine Ketones (Negative) mg/dL Urine Blood (Negative) Urine Nitrite (Negative) Urine Bilirubin (Negative) Urine Urobilinogen (Normal) mg/dL Ur Leukocyte Esterase (Negative) Urine Microscopic RBC (0-3) per hpf Urine Microscopic WBC (0-3) per hpf Ur Squamous Epith Cells (None-Few) per lpf Urine Bacteria (None-Few) per hpf Hyaline Casts (None-Few) per lpf Salicylates < 5.0 L (15-30) mg/dL Urine Opiates Screen ([place]=888) ng/mL Acetaminophen < 1.0 L (10-30) mcg/mL Ur Barbiturates Screen ([place]=757) ng/mL Ur Phencyclidine Scrn (Cutoff=25) ng/mL Ur Amphetamines Screen (Afwpvv=0315) ng/mL U Benzodiazepines Scrn (Yrqthv=374) ng/mL Urine Cocaine Screen (Cutoff= 300) ng/mL U Marijuana (THC) Screen (Cutoff = 50) ng/mL Ethyl Alcohol < 10 (0-10) mg/dL Psychiatric Medical Clearance - Medical Clearance Checklist Does the patient have a NEW psychiatric condition?: No Any abnormalities indicating possible medical illness?: No Any history of medical issues?: Yes (History of heart disease, asthma) Medical History: No Social History Section defined Current Vitals: Last Vital Signs Temp 97.8 F 05/30/17 11:41 Pulse 58 05/30/17 11:41 Resp 18 05/30/17 11:41 BP 173/96 05/30/17 11:41 Pulse Ox 99 05/30/17 11:41 Psychiatric Lab Panel: Drug Levels and Toxicity 05/30/17 05/30/17 11:59 12:07 Urine Opiates Screen Negative Acetaminophen < 1.0 L Ur Barbiturates Screen Negative Ur Phencyclidine Scrn Negative Ur Amphetamines Screen Negative U Benzodiazepines Scrn Negative Urine Cocaine Screen Negative U Marijuana (THC) Screen Negative Ethyl Alcohol < 10 Abnormal Labs: Abnormal lab results RBC 6.16 M/mcL (4.19-5.50) H 05/30/17 12:07 Hgb 17.7 g/dL (12.9-16.9) H 05/30/17 12:07 Hct 52.7 % (37.5-50.1) H 05/30/17 12:07 Glucose 111 mg/dL (70-99) H 05/30/17 12:07 Ur Specific [place] 1.028 (1.010-1.025) H 05/30/17 11:59 Urine Blood Large (Negative) H 05/30/17 11:59 Urine Bilirubin Small (Negative) H 05/30/17 11:59 Urine Urobilinogen 2.0 mg/dL (Normal) H 05/30/17 11:59 Ur Leukocyte Esterase Trace (Negative) H 05/30/17 11:59 Urine Microscopic RBC TNTC per hpf (0-3) H 05/30/17 11:59 Urine Microscopic WBC 5-15 per hpf (0-3) H 05/30/17 11:59 Ur Squamous Epith Cells Moderate per lpf (None-Few) H 05/30/17 11:59 Salicylates < 5.0 mg/dL (15-30) L 05/30/17 12:07 Acetaminophen < 1.0 mcg/mL (10-30) L 05/30/17 12:07 Statement of Medical Clearance: I have evaluated the patient, reviewed diagnostic information, and certify that the patient's medical condition is sufficiently stable that transfer to the psychiatric unit does not pose a significant risk of deterioration.
[2017-05-30 12:14] LABS: Basophils % 0.5 %; Eosinophils % 0.4 %; Hematocrit 52.7 % (37.5-50.1); Hemoglobin 17.7 g/dL (12.9-16.9); Immature Granulocytes % 0.5 % (0-4); Lymphocytes # 0.9 K/mcL (0.6-4.6); Lymphocytes % 12.6 %; Mean Corpuscular HGB Conc 33.6 g/dL (31.6-35.5); Mean Corpuscular Hemoglobin 28.7 pg (28.0-33.3); Mean Corpuscular Volume 85.6 fL (83.0-100.0); Mean Platelet Volume 9.5 fL (9.4-12.4); Monocytes # 0.6 K/mcL (0.0-1.3); Monocytes % 7.9 %; Neutrophils # 5.8 K/mcL (1.6-8.9); Platelet Count 291 K/mcL (140-400); Red Blood Count 6.16 M/mcL (4.19-5.50); Red Cell Distribution Width 12.2 % (11.5-14.5); Segmented Neutrophils % 78.1 %
[2017-05-30 12:20] LABS: Bilirubin,Urine Small (Negative); Blood,Urine Large (Negative); Color,Urine Dark Yellow (Yellow); Glucose,Urine (UA) Normal (Normal); Ketones,Urine Negative (Negative); Leukocyte Esterase,Urine Trace (Negative); Nitrite,Urine Negative (Negative); Protein,Urine Negative (Neg-Trace); Specific Gravity,Urine 1.028 (1.010-1.025)
[2017-05-30 12:22] LABS: Bacteria,Urine None Seen per hpf (None-Few); Clarity,Urine Slightly Hazy (Clear); Hyaline Casts,Urine None Seen per lpf (None-Few); RBC,Urine TNTC per hpf (0-3); Squamous Epithelial Cell,Urine Moderate per lpf (None-Few)
[2017-05-30 12:25] LABS: Amphetamine Screen,Urine Negative ng/mL (Cutoff=1000); Barbiturate Screen,Urine Negative ng/mL (Cutoff=200); Benzodiazepines Screen,Urine Negative ng/mL (Cutoff=200); Cannabinoid Screen,Urine Negative ng/mL (Cutoff = 50); Cocaine Screen,Urine Negative ng/mL (Cutoff= 300); Opiate Screen,Urine Negative ng/mL (Cutoff=300); Phencyclidine Screen,Urine Negative ng/mL (Cutoff=25)
[2017-05-30 12:29] LABS: BUN/Creatinine Ratio 16 (6-26); Blood Urea Nitrogen 15 mg/dL (8-26); Calcium 10.4 mg/dL (8.6-10.8); Carbon Dioxide 26 mEq/L (19-29); Chloride 104 mEq/L (98-109); Glucose 111 mg/dL (70-99); Osmolality,Calculated 288 (280-300); Potassium 4.1 mEq/L (3.5-4.5); Sodium 138 mEq/L (136-145); eGFR For African Americans > 60 (> 60); eGFR For Non-African Americans > 60 (> 60)
[2017-05-30 12:30] LABS: Acetaminophen < 1.0 mcg/mL (10-30); Ethanol < 10 mg/dL (0-10); Salicylate < 5.0 mg/dL (15-30)
[2017-05-30] MEDS ORDERED: *HR* LORazepam 2 MG/ML VIAL IM STA (14:06)
[2017-05-30] MEDS ORDERED: Haloperidol Lactate 5 MG/ML VIAL IM PRN (15:42)
[2017-05-30] MEDS ORDERED: hydrOXYzine pamoate 25 MG CAPSULE PO PRN (15:42)
[2017-05-30] MEDS ORDERED: *HR* LORazepam 2 MG/ML VIAL IM PRN (15:42)
[2017-05-30] MEDS ORDERED: traZODone 50 MG TABLET PO PRN (15:42)
[2017-05-30] MEDS ORDERED: MOM Conc 10 ML UD.LIQ PO PRN (15:42)
[2017-05-30] MEDS ORDERED: *HR* LORazepam 1 MG TABLET PO PRN (15:42)
[2017-05-30] MEDS ORDERED: Ibuprofen 400 MG TABLET PO PRN (15:42)
[2017-05-30] MEDS ORDERED: Mag Hydrox/Al Hydrox/Simeth 30 ML UDC PO PRN (15:42)
[2017-05-30] MEDS: Patient Taking Own Medication 1 EACH IH SCH (22:15)
[2017-05-31] MEDS: Metoprolol XL (24 HR) Succ 25 MG TAB.ER.24H PO SCH (08:54)
[2017-05-31] MEDS: SEREVENT 50 MCG IH SCH ×2 (12:31→21:12)
[2017-05-31] MEDS: (Vilazodone Hcl [Viibryd] 40 MG) PO SCH (12:31)
[2017-05-31] MEDS: Patient Taking Own Medication 1 EACH IH SCH (12:32)
--- NOTE | 2017-05-31 12:46 | Psychiatry History & Physical ---
Date of Encounter: 05/31/17 Time of Encounter: 11:30 History of Present Illness Patient Stated Chief Complaint: Suicidal ideation Medicare Admission Attestation: For traditional Medicare patients the provided hospital inpatient services are reasonable and necessary and in the case of services not specified as inpatient -only under 42 CFR 419.22 (n), that they are appropriately provided as inpatient services in accordance 42 CFR 412.3. For [facility] the patient may reasonably be expected to be discharged or transferred to a hospital within 96 hours after admission to the Critical Access Hospital. Admitted From: Emergency Dept History of Present Illness: Mr. Roque is a 71 year old male admitted from the emergency room for depression and suicidal ideation. Patient is having difficulty with possible divorce from his and feeling hopeless and helpless and unable to cope with the situation. He has been taken antidepressants and sertraline prescribed by his PCP. He reports hypersomnia depressed mood hopelessness and helplessness and suicidal ideation with intent to end his life. Patient has been feeling this way since February 2017 when initiated divorce process. Patient is retired teacher and principal and he denies any use of alcohol or drugs. Family history is positive for depression and schizophrenia. From the records patient had a psychiatric admission in 1988 in [place] for depression and no details are available. Patient did not specify any plan to kill himself but confirm that he is suicidal and hopeless. Past Med Surg Social Fam HX - Past Medical History Medical history: asthma, GERD, hypertension, kidney stones, myocardial infarction - Past Psychiatric History Psychiatric history: Reports: depression, previous psychiatric hospitalization Past psychiatric history details: Hospitalization in 1988 in [place] for depression nor details available - Past Surgical History Surgical History: angioplasty/stent, ureteral stent - Social History Smoking Status: Never smoker Smokeless Tobacco Status: No Alcohol use: occasionally Drug use: none - Family History Father Adopted: [place]: Juan Family Member Ethnicity: Non- Living Status: Age at : 90 Cause of : Parkinson's Dementia Hx Family Cardiac Disorders: No Hx Family Respiratory Disorders: No Hx Family Cancer: No Hx Family GI Disorders: No Hx Family Genitourinary Disorders: No Hx Family Endocrine Disorder: No Hx Family Musculoskeletal Disorders: Yes Hx Family Neuromuscular Disorders: Yes Hx Family Neurologic Disorders: Yes Hx Family Autoimmune Disorders: No Hx Family Reproductive Disorders: No Hx Family Psychosocial Disorders: No Hx Family Medical Disorders: Yes (Father: War Vet and Depression, Schizophrenia - Aunt, Grandfather MH issues) Mother Adopted: [place]: Irma Roque Family Member Ethnicity: Non- Living Status: Age at : 92 Cause of : Abdominal Anurysm Hx Family Cardiac Disorders: Yes (HTN) Hx Family Respiratory Disorders: Yes (Asthma) Hx Family Cancer: No Hx Family GI Disorders: No Hx Family Genitourinary Disorders: No Hx Family Endocrine Disorder: No Hx Family Musculoskeletal Disorders: No Hx Family Neuromuscular Disorders: No Hx Family Neurologic Disorders: No Hx Family HEENT Disorders: No Hx Family Autoimmune Disorders: No Hx Family Reproductive Disorders: No Hx Family Psychosocial Disorders: No Hx Family Medical Disorders: No Medications & Allergies Clopidogrel [Plavix] 75 mg PO DAILY 05/19/17 [History] Lisinopril [Zestril] 5 mg PO DAILY 05/19/17 [History] Metoprolol Succinate 25 mg PO DAILY 05/19/17 [History] Pantoprazole Sodium 40 mg PO DAILY 05/19/17 [History] Salmeterol Xinafoate [Serevent Diskus] 1 puff IH BID 05/19/17 [History] Sertraline [Zoloft] 100 mg PO DAILY 05/19/17 [History] Vilazodone HCl [Viibryd] 40 mg PO DAILY 05/19/17 [History] 3 Allergy/AdvReac Type Severity Reaction Status Date / Time No Known Allergies Allergy Verified 05/18/17 22:27 Review of Systems Psychiatric: Reports: depression, suicidal ideation Mental Status Exam Patient orientation: Yes Person, Yes Time, Yes Place Level of alertness: Alert Patient appearance: Appropriate, Well Groomed Behavior: calm, cooperative, anxious, guarded Psychomotor activity: Slowed Eye contact: Maintains Eye Contact Mood description: Depressed, Anxious Affect description: congruent with mood, constricted, anxious Speech pattern: Normal rate, Normal rhythm, Normal tone, Excessive, Pressured Speech volume: Normal Thought process: Linear, Goal Oriented, Circumstantial Thought content: Yes Suicidal ideation, No Homicidal ideation, No Overt delusions, Yes Preoccupation, Yes Obsessive thoughts Perceptual disturbances: No Auditory hallucinations, No Visual hallucinations Attention span: Capable of Focused Attention Memory description: Grossly Intact Patient reliability: Reliable Historian Intelligence estimate: Average Judgment: Limited Insight: Partial Results - Vital Signs Vital signs: Temp Pulse Resp BP Pulse Ox 97.5 F L 79 18 128/87 99 05/31/17 09:00 05/31/17 09:00 05/31/17 09:00 05/31/17 09:00 05/30/17 11:41 - Labs Labs: Laboratory Last Values WBC 7.5 K/mcL (4.3-11.1) 05/30/17 12:07 RBC 6.16 M/mcL (4.19-5.50) H 05/30/17 12:07 Hgb 17.7 g/dL (12.9-16.9) H 05/30/17 12:07 Hct 52.7 % (37.5-50.1) H 05/30/17 12:07 MCV 85.6 fL (83.0-100.0) 05/30/17 12:07 MCH 28.7 pg (28.0-33.3) 05/30/17 12:07 MCHC 33.6 g/dL (31.6-35.5) 05/30/17 12:07 RDW 12.2 % (11.5-14.5) 05/30/17 12:07 Plt Count 291 K/mcL (140-400) 05/30/17 12:07 MPV 9.5 fL (9.4-12.4) 05/30/17 12:07 Immature Gran % 0.5 % (0-4) 05/30/17 12:07 Seg Neutrophils % 78.1 % 05/30/17 12:07 Lymphocytes % 12.6 % 05/30/17 12:07 Monocytes % 7.9 % 05/30/17 12:07 Eosinophils % 0.4 % 05/30/17 12:07 Basophils % 0.5 % 05/30/17 12:07 Neutrophils # 5.8 K/mcL (1.6-8.9) 05/30/17 12:07 Lymphocytes # 0.9 K/mcL (0.6-4.6) 05/30/17 12:07 Monocytes # 0.6 K/mcL (0.0-1.3) 05/30/17 12:07 Eosinophils # 0.0 K/mcL (0.0-0.6) 05/30/17 12:07 Basophils # 0.0 K/mcL (0.0-0.2) 05/30/17 12:07 Sodium 138 mEq/L (136-145) 05/30/17 12:07 Potassium 4.1 mEq/L (3.5-4.5) 05/30/17 12:07 Chloride 104 mEq/L (98-109) 05/30/17 12:07 Carbon Dioxide 26 mEq/L (19-29) 05/30/17 12:07 BUN 15 mg/dL (8-26) 05/30/17 12:07 Creatinine 0.91 mg/dL (0.72-1.25) 05/30/17 12:07 Est GFR ( Amer) > 60 (> 60) 05/30/17 12:07 Est GFR (Non-Af Amer) > 60 (> 60) 05/30/17 12:07 BUN/Creatinine Ratio 16 (6-26) 05/30/17 12:07 Glucose 111 mg/dL (70-99) H 05/30/17 12:07 Calculated Osmolality 288 (280-300) 05/30/17 12:07 Calcium 10.4 mg/dL (8.6-10.8) 05/30/17 12:07 Urine Color Dark Yellow (Yellow) 05/30/17 11:59 Urine Clarity Slightly Hazy (Clear) 05/30/17 11:59 Urine pH 6.0 pH Units (5.0-8.0) 05/30/17 11:[address] 1.028 (1.010-1.025) H 05/30/17 11:59 Urine Protein Negative mg/dL (Neg-Trace) 05/30/17 11:59 Urine Glucose (UA) Normal mg/dL (Normal) 05/30/17 11:59 Urine Ketones Negative mg/dL (Negative) 05/30/17 11:59 Urine Blood Large (Negative) H 05/30/17 11:59 Urine Nitrite Negative (Negative) 05/30/17 11:59 Urine Bilirubin Small (Negative) H 05/30/17 11:59 Urine Urobilinogen 2.0 mg/dL (Normal) H 05/30/17 11:59 Ur Leukocyte Esterase Trace (Negative) H 05/30/17 11:59 Urine Microscopic RBC TNTC per hpf (0-3) H 05/30/17 11:59 Urine Microscopic WBC 5-15 per hpf (0-3) H 05/30/17 11:59 Ur Squamous Epith Cells Moderate per lpf (None-Few) H 05/30/17 11:59 Urine Bacteria None Seen per hpf (None-Few) 05/30/17 11:59 Hyaline Casts None Seen per lpf (None-Few) 05/30/17 11:59 Salicylates < 5.0 mg/dL (15-30) L 05/30/17 12:07 Urine Opiates Screen Negative ng/mL (Jwtocm=462) 05/30/17 11:59 Acetaminophen < 1.0 mcg/mL (10-30) L 05/30/17 12:07 Ur Barbiturates Screen Negative ng/mL (Jbrnwq=893) 05/30/17 11:59 Ur Phencyclidine Scrn Negative ng/mL (Cutoff=25) 05/30/17 11:59 Ur Amphetamines Screen Negative ng/mL (Resdfi=0185) 05/30/17 11:59 U Benzodiazepines Scrn Negative ng/mL (Yzmhnl=427) 05/30/17 11:59 Urine Cocaine Screen Negative ng/mL (Cutoff= 300) 05/30/17 11:59 U Marijuana (THC) Screen Negative ng/mL (Cutoff = 50) 05/30/17 11:59 Ethyl Alcohol < 10 mg/dL (0-10) 05/30/17 12:07 Assessment and Plan (1) Recurrent major depression-severe Current visit: Yes Status: Acute Plan: Admit inpatient for safety and stabilization, Close observation, Suicide Precautions per unit protocol, Encourage participation in unit milieu, Group Therapy, Monitor sleep, Monitor appetite Additional Plan: We will increase sertraline to 150 mg daily. Will add Abilify 5 mg at bedtime. Risks, benefits, side effects, alternatives discussed w/pt: Yes Patient agreeable to treatment: Yes Qualifiers: Psychotic features: without psychotic features Qualified Code(s): F33.2 - Major depressive disorder, recurrent severe without psychotic features
[2017-05-31] MEDS: ARIPiprazole 5 MG TABLET PO SCH (21:11)
[2017-06-01] MEDS: SEREVENT 50 MCG IH SCH ×2 (08:45→21:02)
[2017-06-01] MEDS: Metoprolol XL (24 HR) Succ 25 MG TAB.ER.24H PO SCH (08:45)
[2017-06-01] MEDS: (Vilazodone Hcl [Viibryd] 40 MG) PO SCH (08:45)
--- NOTE | 2017-06-01 11:53 | Psychiatry Progress Note ---
Date of Encounter: 06/01/17 Time of Encounter: 11:51 Subjective Interval history: Patient seen and evaluated this morning in his room. Patient reports that he is very anxious and reports he is very anxious about what the plans can be because he has to "return where I came from" when asked patient where patient reports home and states that him and his are in the process of a divorce. Patient reports that he does not have any friends house to go to he does report having a son that he may be able to go there. Patient was very tangential was not able to focus on questions being asked discussed any medication issues with patient and patient reported no patient did asked what Abilify is used for and this provided discussed and explained to patient what Abilify was used for patient reports poor sleep poor appetite ongoing suicidal ideations with no plan patient continues to endorse depression and anxiety. Review of Systems Psychiatric: Reports: depression, suicidal ideation Objective: Exam Patient orientation: Yes Person, Yes Time, Yes Place, Yes Circumstance Level of alertness: Alert Patient appearance: Disheveled Behavior: nervous, anxious, tearful, restless, distractible Psychomotor activity: Normal Eye contact: Minimal Contact Mood description: Depressed, Anxious, Labile Affect description: flat Speech pattern: Normal rate Speech volume: Normal Thought process: Intact Thought content: Yes Suicidal ideation Judgment: Limited Insight: Minimal Results - Vital Signs Vital Signs: Temp Pulse Resp BP Pulse Ox 97.7 F 66 16 136/84 99 06/01/17 08:57 06/01/17 08:57 06/01/17 08:57 06/01/17 08:57 05/30/17 11:41 Assessment and Plan (1) Major depression, recurrent Current visit: Yes Status: Acute Plan: Continue hospitalization, Suicide Precautions per unit protocol, Encourage participation in unit milieu, Group Therapy, Monitor sleep, Monitor appetite, Family/Supportive other meeting Risks, benefits, side effects, alternatives discussed w/pt: Yes Patient agreeable to treatment: Yes Qualifiers: Active/Remission status: currently active Psychotic features: without psychotic features Consult Discharge Plan - Plan Referrals: [facility] [Outside] - 06/06/17 1:00 pm (The above appointment is with Maria Luisa Weiss, PhD, for mental health counseling services. Please arrive 10 minutes early to complete the check-in process. Please bring your insurance card (or [facility] award letter) and photo ID. If you are unable to keep this appointment, 24 hour business notice of cancellation is expected. If you miss your new patient appointment without providing appropriate notice, you cannot be re-scheduled. This is the first available appointment. You may contact the office regularly to check for cancellations that may allow you to be seen sooner. The [facility] is the [address] [place] [address] behind [facility] in [place], [place]. Please do not use GPS or mapping apps to locate the office, as they will take you to the wrong location. ) Pierre Galeana Jr, MD [Non-Partnered Physician] - 06/04/17 4:30 pm (The above appointment is with Dr. Galeana for primary health care and medication management services.)
[2017-06-01] MEDS: ARIPiprazole 5 MG TABLET PO SCH (20:59)
[2017-06-01] MEDS: traZODone 50 MG TABLET PO SCH (21:00)
[2017-06-02] MEDS: Metoprolol XL (24 HR) Succ 25 MG TAB.ER.24H PO SCH (09:15)
[2017-06-02] MEDS: SEREVENT 50 MCG IH SCH ×2 (09:22→21:10)
[2017-06-02] MEDS: (Vilazodone Hcl [Viibryd] 40 MG) PO SCH (09:41)
--- NOTE | 2017-06-02 17:29 | Psychiatry Progress Note ---
Date of Encounter: 06/02/17 Time of Encounter: 17:27 Subjective Interval history: Patient seen and evaluated. Patient was in no acute distress during the evaluation patient was calm and cooperative with evaluation. Patient reports that he is feeling better since admission. Patient reports that he was anxious about going home and now he reports after talking to his sons that he is feeling more confident about going home. Patient reports that he knows that he has to go to the situation at home and he is willing to deal with this and use his coping skills. Patient reports he is looking forward to having a counselor and to see to help with his anxiety in this situation at this time. Patient denied any suicidal ideation patient denied any thoughts of self-harm. Patient has been medication compliant patient has been seen socializing with other peers patient reports no issues with sleep or appetite. Discussed with patient that we would need to get collateral information patient reports that we are able to call his son to make sure there is no safety concerns. Patient will be signing in voluntarily today. Review of Systems Psychiatric: Reports: anxiety, suicidal ideation Objective: Exam Patient orientation: Yes Person, Yes Time, Yes Place, Yes Circumstance Level of alertness: Alert Patient appearance: Appropriate Behavior: calm, anxious Psychomotor activity: Normal Eye contact: Maintains Eye Contact Mood description: Euthymic/stable Affect description: congruent with mood Speech pattern: Normal rate Speech volume: Normal Thought process: Intact Thought content: Yes Intact Judgment: Fair Insight: Partial Results - Vital Signs Vital Signs: Temp Pulse Resp BP Pulse Ox 98.1 F 65 16 140/75 99 06/02/17 09:00 06/02/17 09:00 06/02/17 09:00 06/02/17 09:00 05/30/17 11:41 Assessment and Plan (1) Major depression, recurrent Current visit: Yes Status: Acute Additional Plan: - continue meds, collateral needed Risks, benefits, side effects, alternatives discussed w/pt: Yes Patient agreeable to treatment: Yes Qualifiers: Active/Remission status: currently active Psychotic features: without psychotic features Consult Discharge Plan - Plan Referrals: [facility] [Outside] - 06/06/17 1:00 pm (The above appointment is with Maria Luisa Weiss, PhD, for mental health counseling services. Please arrive 10 minutes early to complete the check-in process. Please bring your insurance card (or [facility] award letter) and photo ID. If you are unable to keep this appointment, 24 hour business notice of cancellation is expected. If you miss your new patient appointment without providing appropriate notice, you cannot be re-scheduled. This is the first available appointment. You may contact the office regularly to check for cancellations that may allow you to be seen sooner. The [facility] is the [address] [place] [address] behind [facility] in [place], [place]. Please do not use GPS or mapping apps to locate the office, as they will take you to the wrong location. ) Pierre Galeana Jr, MD [Non-Partnered Physician] - 06/04/17 4:30 pm (The above appointment is with Dr. Galeana for primary health care and medication management services.)
[2017-06-02] MEDS: traZODone 50 MG TABLET PO SCH (20:36)
[2017-06-02] MEDS: ARIPiprazole 5 MG TABLET PO SCH (20:36)
[2017-06-03] MEDS: Metoprolol XL (24 HR) Succ 25 MG TAB.ER.24H PO SCH (08:44)
[2017-06-03] MEDS: (Vilazodone Hcl [Viibryd] 40 MG) PO SCH (08:45)
[2017-06-03] MEDS: SEREVENT 50 MCG IH SCH (08:45)
[2017-06-03 10:00] VITALS: BP 131/83
--- NOTE | 2017-06-03 12:58 | Discharge Summary ---
Date of Encounter: 06/03/17 Time of Encounter: 12:56 Diagnosis - Discharge Diagnosis (1) Major depression, recurrent Status: Resolved Qualifiers: Active/Remission status: in partial remission Qualified Code(s): F33.41 - Major depressive disorder, recurrent, in partial remission Medications - Discharge Medications Prescriptions: ARIPiprazole [Abilify] 5 mg PO HS #30 tab Sertraline [Zoloft] 100 mg PO DAILY #30 Vilazodone HCl [Viibryd] 40 mg PO DAILY #30 Clopidogrel [Plavix] 75 mg PO DAILY 05/19/17 [History] Lisinopril [Zestril] 5 mg PO DAILY 05/19/17 [History] Metoprolol Succinate 25 mg PO DAILY 05/19/17 [History] Pantoprazole Sodium 40 mg PO DAILY 05/19/17 [History] Salmeterol Xinafoate [Serevent Diskus] 1 puff IH BID 05/19/17 [History] ARIPiprazole [Abilify] 5 mg PO HS #30 tab 06/03/17 [Rx] Metoprolol XL (24 HR) Succ [Toprol Xl] 25 mg PO DAILY 06/03/17 [Rx] Sertraline [Zoloft] 100 mg PO DAILY #30 06/03/17 [Rx] Vilazodone HCl [Viibryd] 40 mg PO DAILY #30 06/03/17 [Rx] traZODone [TraZODone] 100 mg PO HS #30 tab 06/03/17 [Rx] 3 Allergy/AdvReac Type Severity Reaction Status Date / Time No Known Allergies Allergy Verified 05/18/17 22:27 Provider Date of admission: 05/31/17 13:03 Primary care physician: PCP NONE Discharging clinician: Jimmie Rowley Assessment and Plan - Patient/Caregiver Discharge Instructions Activity: resume usual activities as tolerated, return to work Diet: regular diet - Follow up Plan Follow up with: [facility] [Outside] - 06/06/17 1:00 pm (The above appointment is with Maria Luisa Weiss, PhD, for mental health counseling services. Please arrive 10 minutes early to complete the check-in process. Please bring your insurance card (or [facility] award letter) and photo ID. If you are unable to keep this appointment, 24 hour business notice of cancellation is expected. If you miss your new patient appointment without providing appropriate notice, you cannot be re-scheduled. This is the first available appointment. You may contact the office regularly to check for cancellations that may allow you to be seen sooner. The [facility] is the 1[address] building behind [facility] in [place], [place]. Please do not use GPS or mapping apps to locate the office, as they will take you to the wrong location. ) Pierre Galeana Jr, MD [Non-Partnered Physician] - 06/04/17 4:30 pm (The above appointment is with Dr. Galeana for primary health care and medication management services.) Functional capacity at discharge: independent ambulation Overall status at discharge: Stable Disposition: Home, Self-Care Hospital Course Hospital course: Mr. Roque is a 71 year old male with anxiety and depression admitted to [place] inpatient psychiatric unit for safety and stabilization. Patient's home medications were continued and reviewed. Throughout the hospital course patient 's sertraline was decreased and discontinued and patient's vibrated was continued. Patient was also started on Abilify 5 mg at bedtime to assist with mood symptom stabilization. Patient did not exhibit any side effects to medication he was med compliant while he was on the unit patient participated in groups and was socializing with peers. Patient's sleep and appetite was fair. Patient denied any suicide or homicide ideations. Patient denied any thoughts of self-harm. Patient reports being interested in outpatient medication management and counseling. Patient was discussed for discharge due to patient not being a threat to himself or anyone else. 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 Patient will be returning home on discharge. Time spent discussing smoking cessation with patient: 3 to 10 minutes Does patient wish to continue nicotine replacement upon disc: No - Time Spent with Patient Total time spent providing and/or coordinating discharge services: 15 min Less than 30 minutes Quality - Multiple Antipsychotics Patient discharged on 2 or more antipsychotic medications: No Procedures - Procedures Procedures: Medication Management, Supportive Therapy Mental Status Exam - Mental Status Exam Patient orientation: Yes Person, Yes Time, Yes Place, Yes Circumstance Level of alertness: Alert Patient appearance: Appropriate Behavior: calm Psychomotor activity: Normal Eye contact: Maintains Eye Contact Mood description: Euthymic/stable Affect description: congruent with mood Speech pattern: Normal rate Speech Volume: Normal Thought process: Intact Thought Content: Yes Intact Judgment: Good Insight: Full
== END 2017-06-03 15:25 | disposition home or self-care (01) | DRG 885 ==
LOC: EMEROO 11:38 → INTOOBSV 14:56 → 1ANU 14:56 → SUATTDRO 05-31 13:03
PROVIDERS: ADMIT Psychiatry & Neurology Psychiatry; ATTEND Psychiatry & Neurology Psychiatry

== ENCOUNTER 2021-06-07 03:33 | Inpatient (IN) ==
[2021-06-07 04:03] LABS: Bilirubin,Urine Negative (Negative); Blood,Urine Small (Negative); Clarity,Urine Clear (Clear); Color,Urine Light-Yellow (Yellow); Glucose,Urine (UA) Normal (Normal); Ketones,Urine 10 mg/dL (Negative); Leukocyte Esterase,Urine Negative (Negative); Mucus,Urine Few per lpf (None-Few); Nitrite,Urine Negative (Negative); PH,Urine 5.5 pH Units (5.0-8.0); Protein,Urine Trace mg/dL (Neg-Trace); Specific Gravity,Urine 1.021 (1.010-1.025); Squamous Epithelial Cell,Urine Few per hpf (None-Few); Urobilinogen,Urine Normal (Normal); WBC,Urine 0-3 per hpf (0-3)
[2021-06-07 05:14] LABS: Basophils % 0.1 %; Hematocrit 48.6 % (37.5-50.1); Hemoglobin 15.6 g/dL (12.9-16.9); Immature Granulocytes % 0.4 % (0-4); Lymphocytes # 0.6 K/mcL (0.6-4.6); Lymphocytes % 4.7 %; Mean Corpuscular HGB Conc 32.1 g/dL (31.6-35.5); Mean Corpuscular Hemoglobin 29.2 pg (28.0-33.3); Mean Corpuscular Volume 90.8 fL (83.0-100.0); Mean Platelet Volume 10.6 fL (9.4-12.4); Monocytes % 7.4 %; Neutrophils # 11.5 K/mcL (1.6-8.9); Platelet Count 212 K/mcL (140-400); Red Blood Count 5.35 M/mcL (4.19-5.50); Red Cell Distribution Width 13.1 % (11.5-14.5); Segmented Neutrophils % 87.4 %; White Blood Count 13.2 K/mcL (4.3-11.1)
[2021-06-07] MEDS ORDERED: Ondansetron 4 MG/2 ML VIAL IVP ONE (05:23)
[2021-06-07] MEDS ORDERED: 0.9 % Sodium Chloride 500 ML IVC ONE (05:24)
[2021-06-07 05:42] LABS: Alanine Aminotransferase 22 Units/L (7-52); Albumin 4.1 g/dL (3.5-5.7); Albumin/Globulin Ratio 1.3 (1.1-2.2); Alkaline Phosphatase 71 Units/L (34-104); Aspartate Amino Transferase 16 Units/L (13-39); BUN/Creatinine Ratio 16 (6-26); Bilirubin,Direct 0.2 mg/dL (0.0-0.2); Bilirubin,Indirect 0.6 mg/dL (0.0-1.0); Bilirubin,Total 0.8 mg/dL (0.3-1.0); Blood Urea Nitrogen 23 mg/dL (8-23); Calcium 9.2 mg/dL (8.6-10.3); Carbon Dioxide 22 mEq/L (23-29); Chloride 106 mEq/L (98-107); Globulin 3.1 g/dL (2.4-3.5); Glucose 160 mg/dL (70-105); Lipase 37 Units/L (11-82); Osmolality,Calculated 293 (280-300); Potassium 4.2 mEq/L (3.5-5.1); Sodium 138 mEq/L (136-145); Total Protein 7.2 g/dL (6.4-8.9); Troponin I < 0.03 ng/mL (< 0.04); eGFR For African Americans 59 (> 60); eGFR For Non-African Americans 49 (> 60)
[2021-06-07] MEDS: Morphine Sulfate 2 MG/ML SYRINGE IVP STA ×2 (06:34→06:51)
[2021-06-07] MEDS ORDERED: Naloxone 0.4 MG/ML INJ IVP PRN (08:51)
[2021-06-07] MEDS ORDERED: Ondansetron 4 MG/2 ML VIAL IVP PRN (08:51)
[2021-06-07] MEDS ORDERED: *HR* FentaNYL (PF) 100 MCG/2 ML VIAL ONE (09:28)
[2021-06-07] MEDS ORDERED: Ondansetron 4 MG/2 ML VIAL ONE (09:28)
[2021-06-07] MEDS ORDERED: Lidocaine -MPF 2% 2 ML VIAL ONE (09:28)
[2021-06-07] MEDS ORDERED: *HR* Propofol 200 MG/20 ML VIAL IVP ONE ×2 (09:28→11:55)
[2021-06-07] MEDS ORDERED: Isovue-300 50ML VIAL ONE (09:34)
[2021-06-07] MEDS ORDERED: *HR* OxyCODONE Immed Rel 5 MG TABLET PO PRN (09:43)
[2021-06-07] MEDS ORDERED: *HR* HYDROmorphone PF 0.5 MG/0.5 ML SYRINGE IVP PRN (09:43)
[2021-06-07] MEDS ORDERED: cefTRIAXone 1,000 MG in Water for inj. (sterile) 10 ML IVP SCH (10:00)
[2021-06-07] MEDS ORDERED: ceFAZolin 2,000 MG in Water for inj. (sterile) 20 ML IVP ONE (10:24)
[2021-06-07] MEDS ORDERED: EPHEDrine 50 MG/ML VIAL ONE (11:29)
[2021-06-07] MEDS: 0.9 % Sodium Chloride 1,000 ML IVC SCH (19:49)
[2021-06-07] MEDS ORDERED: ARIPiprazole 5 MG TABLET PO SCH (21:00)
[2021-06-08 01:47] LABS: Hematocrit 40.2 % (37.5-50.1); Immature Granulocytes % 0.4 % (0-4); Lymphocytes # 0.5 K/mcL (0.6-4.6); Lymphocytes % 4.3 %; Mean Corpuscular HGB Conc 32.3 g/dL (31.6-35.5); Mean Corpuscular Hemoglobin 29.3 pg (28.0-33.3); Mean Corpuscular Volume 90.5 fL (83.0-100.0); Monocytes # 0.6 K/mcL (0.0-1.3); Monocytes % 5.2 %; Platelet Count 174 K/mcL (140-400); Red Blood Count 4.44 M/mcL (4.19-5.50); Segmented Neutrophils % 90.1 %; White Blood Count 11.1 K/mcL (4.3-11.1)
[2021-06-08 02:10] LABS: BUN/Creatinine Ratio 22 (6-26); Blood Urea Nitrogen 24 mg/dL (8-23); Calcium 8.4 mg/dL (8.6-10.3); Carbon Dioxide 22 mEq/L (23-29); Chloride 109 mEq/L (98-107); Glucose 150 mg/dL (70-105); Osmolality,Calculated 291 (280-300); Potassium 4.4 mEq/L (3.5-5.1); Sodium 137 mEq/L (136-145); eGFR For African Americans > 60 (> 60); eGFR For Non-African Americans > 60 (> 60)
[2021-06-08] MEDS: 0.9 % Sodium Chloride 1,000 ML IVC SCH (04:25)
[2021-06-08] MEDS ORDERED: Naloxone 0.4 MG/ML INJ IVP PRN (07:26)
[2021-06-08] MEDS ORDERED: Ondansetron 4 MG/2 ML VIAL IVP PRN (07:26)
[2021-06-08] MEDS ORDERED: Venlafaxine XR (24 HR) 150 MG CAP.ER.24H PO SCH ×2 (09:00→09:45)
[2021-06-08] MEDS ORDERED: Metoprolol XL (24 HR) Succ 25 MG TAB.ER.24H PO SCH ×2 (09:00→09:45)
[2021-06-08] MEDS ORDERED: Famotidine 20 MG TABLET PO SCH (10:30)
[2021-06-08 10:53] VITALS: BP 130/78; PULSE 82; TEMP 99.2; O2SAT 97
[2021-06-08] MEDS ORDERED: ARIPiprazole 5 MG TABLET PO SCH (21:00)
== END 2021-06-08 11:40 | disposition home or self-care (01) | DRG 661 ==
LOC: EMEROOARM 03:33 → 2ANU 03:33 → SUATTDRO 14:00
PROVIDERS: ADMIT Internal Medicine; ATTEND Internal Medicine

== ENCOUNTER 2022-03-16 20:07 | Inpatient (IN) ==
[2022-03-16] MEDS ORDERED: 0.9 % Sodium Chloride 1,000 ML IVC ONE ×2 (20:19→20:22)
[2022-03-16] MEDS ORDERED: Isovue-370 500 ML BOTTLE IVP ONE (20:20)
[2022-03-16] MEDS ORDERED: Pantoprazole 80 MG in 0.9 % Sodium Chloride 50 ML IVPB ONE (20:21)
[2022-03-16] MEDS ORDERED: Ondansetron 4 MG/2 ML VIAL IVP ONE (20:21)
[2022-03-16 20:37] LABS: Basophils % 0.2 %; Eosinophils % 0.1 %; Hematocrit 42.2 % (37.5-50.1); Hemoglobin 13.6 g/dL (12.9-16.9); Immature Granulocytes % 0.5 % (0-4); Lymphocytes # 1.7 K/mcL (0.6-4.6); Mean Corpuscular HGB Conc 32.2 g/dL (31.6-35.5); Mean Platelet Volume 10.5 fL (9.4-12.4); Monocytes % 7.4 %; Neutrophils # 10.3 K/mcL (1.6-8.9); Platelet Count 280 K/mcL (140-400); Red Blood Count 4.69 M/mcL (4.19-5.50); Red Cell Distribution Width 13.2 % (11.5-14.5); Segmented Neutrophils % 78.8 %; White Blood Count 13.1 K/mcL (4.3-11.1)
[2022-03-16 21:29] LABS: Alanine Aminotransferase 13 Units/L (7-52); Albumin/Globulin Ratio 1.4 (1.1-2.2); Alkaline Phosphatase 65 Units/L (34-104); Aspartate Amino Transferase 13 Units/L (13-39); BUN/Creatinine Ratio 50 (6-26); Bilirubin,Total 0.6 mg/dL (0.3-1.0); Blood Urea Nitrogen 58 mg/dL (8-23); Calcium 10.7 mg/dL (8.6-10.3); Carbon Dioxide 22 mEq/L (23-29); Chloride 107 mEq/L (98-107); Globulin 2.9 g/dL (2.4-3.5); Glucose 204 mg/dL (70-105); Lipase 39 Units/L (11-82); Osmolality,Calculated 314 (280-300); Potassium 4.1 mEq/L (3.5-5.1); Sodium 141 mEq/L (136-145); Total Protein 6.9 g/dL (6.4-8.9); eGFR For African Americans > 60 (> 60); eGFR For Non-African Americans > 60 (> 60)
[2022-03-16 21:31] LABS: Troponin I < 0.03 ng/mL (< 0.04)
[2022-03-16] MEDS: Pantoprazole 40 MG in 0.9 % Sodium Chloride Mini Bag 100 ML IVC SCH (21:40)
[2022-03-16 21:45] LABS: INR 1.2; Prothrombin Time 13.4 Seconds (9.4-12.1)
[2022-03-16 21:48] LABS: Activated Partial Thrombo Time 26.4 Seconds (26.0-36.0)
[2022-03-16] MEDS ORDERED: cefTRIAXone 1,000 MG in Water for inj. (sterile) 10 ML IVP ONE (23:57)
[2022-03-16] MEDS ORDERED: Azithromycin 250 MG TABLET PO ONE (23:57)
[2022-03-17] MEDS ORDERED: Naloxone 0.4 MG/ML INJ IVP PRN (00:43)
[2022-03-17 00:59] LABS: Bilirubin,Urine Negative (Negative); Blood,Urine Negative (Negative); Clarity,Urine Clear (Clear); Color,Urine Colorless (Yellow); Glucose,Urine (UA) Normal (Normal); Ketones,Urine Negative (Negative); Leukocyte Esterase,Urine Negative (Negative); Nitrite,Urine Negative (Negative); PH,Urine 5.5 pH Units (5.0-8.0); Protein,Urine Negative (Neg-Trace); Specific Gravity,Urine > 1.030 (1.010-1.025); Urobilinogen,Urine Normal (Normal)
[2022-03-17] MEDS ORDERED: 0.9 % Sodium Chloride 1,000 ML IVC SCH ×2 (01:00→02:45)
[2022-03-17 01:05] LABS: Hematocrit 30.1 % (37.5-50.1)
[2022-03-17 01:12] LABS: Hemoglobin 9.9 g/dL (12.9-16.9)
[2022-03-17 01:22] LABS: Influenza A PCR Negative (Negative); Influenza B PCR Negative (Negative); Resp. Syncytial Virus PCR Negative (Negative); SARS-CoV-2 by PCR (In House) Negative (Negative)
[2022-03-17] MEDS: 0.9 % Sodium Chloride 1,000 ML IVC SCH ×3 (01:26→16:43)
[2022-03-17] MEDS ORDERED: 0.9 % Sodium Chloride 1,000 ML IVC ONE (02:38)
[2022-03-17] MEDS: Pantoprazole 40 MG in 0.9 % Sodium Chloride Mini Bag 100 ML IVC SCH ×5 (03:07→22:21)
[2022-03-17 04:35] LABS: Hematocrit 28.8 % (37.5-50.1); Hemoglobin 9.4 g/dL (12.9-16.9); Mean Corpuscular HGB Conc 32.6 g/dL (31.6-35.5); Mean Corpuscular Hemoglobin 29.6 pg (28.0-33.3); Mean Corpuscular Volume 90.6 fL (83.0-100.0); Mean Platelet Volume 10.3 fL (9.4-12.4); Platelet Count 172 K/mcL (140-400); Red Blood Count 3.18 M/mcL (4.19-5.50); Red Cell Distribution Width 13.2 % (11.5-14.5); White Blood Count 9.3 K/mcL (4.3-11.1)
[2022-03-17 04:47] LABS: BUN/Creatinine Ratio 63 (6-26); Blood Urea Nitrogen 51 mg/dL (8-23); Calcium 8.1 mg/dL (8.6-10.3); Carbon Dioxide 18 mEq/L (23-29); Chloride 117 mEq/L (98-107); Glucose 106 mg/dL (70-105); Osmolality,Calculated 308 (280-300); Potassium 3.9 mEq/L (3.5-5.1); Sodium 142 mEq/L (136-145); eGFR For African Americans > 60 (> 60); eGFR For Non-African Americans > 60 (> 60)
[2022-03-17 04:50] LABS: Albumin/Globulin Ratio 1.5 (1.1-2.2); Bilirubin,Direct 0.1 mg/dL (0.0-0.2); Bilirubin,Indirect 0.2 mg/dL (0.0-1.0); Bilirubin,Total 0.3 mg/dL (0.3-1.0)
[2022-03-17] MEDS ORDERED: Simethicone 40 MG/0.6 ML MLS IR ONE (11:26)
[2022-03-17] MEDS ORDERED: *HR* Propofol 200 MG/20 ML VIAL IVP ONE ×2 (11:28→11:33)
[2022-03-17] MEDS ORDERED: *HR* Succinylcholine 200 MG/10 ML VIAL IVP ONE (11:28)
[2022-03-17] MEDS ORDERED: Lidocaine -MPF 2% 2 ML VIAL ONE (11:28)
[2022-03-17] MEDS ORDERED: Ondansetron 4 MG/2 ML VIAL ONE (12:04)
[2022-03-17 16:06] LABS: Hematocrit 29.3 % (37.5-50.1); Hemoglobin 9.4 g/dL (12.9-16.9); Mean Corpuscular HGB Conc 32.1 g/dL (31.6-35.5); Mean Corpuscular Hemoglobin 29.2 pg (28.0-33.3); Mean Platelet Volume 10.4 fL (9.4-12.4); Platelet Count 156 K/mcL (140-400); Red Blood Count 3.22 M/mcL (4.19-5.50); Red Cell Distribution Width 13.3 % (11.5-14.5); White Blood Count 9.6 K/mcL (4.3-11.1)
[2022-03-18 01:44] LABS: Hematocrit 25.7 % (37.5-50.1); Hemoglobin 8.3 g/dL (12.9-16.9); Immature Granulocytes % 0.3 % (0-4); Lymphocytes # 0.7 K/mcL (0.6-4.6); Lymphocytes % 11.8 %; Mean Corpuscular HGB Conc 32.3 g/dL (31.6-35.5); Mean Corpuscular Hemoglobin 29.1 pg (28.0-33.3); Mean Corpuscular Volume 90.2 fL (83.0-100.0); Mean Platelet Volume 10.2 fL (9.4-12.4); Monocytes # 0.2 K/mcL (0.0-1.3); Monocytes % 3.6 %; Neutrophils # 5.2 K/mcL (1.6-8.9); Platelet Count 146 K/mcL (140-400); Red Blood Count 2.85 M/mcL (4.19-5.50); Red Cell Distribution Width 13.2 % (11.5-14.5); Segmented Neutrophils % 84.3 %; White Blood Count 6.1 K/mcL (4.3-11.1)
[2022-03-18 02:04] LABS: BUN/Creatinine Ratio 26 (6-26); Blood Urea Nitrogen 20 mg/dL (8-23); Calcium 7.8 mg/dL (8.6-10.3); Carbon Dioxide 21 mEq/L (23-29); Chloride 115 mEq/L (98-107); Glucose 124 mg/dL (70-105); Osmolality,Calculated 296 (280-300); Sodium 141 mEq/L (136-145); eGFR For African Americans > 60 (> 60); eGFR For Non-African Americans > 60 (> 60)
[2022-03-18] MEDS: 0.9 % Sodium Chloride 1,000 ML IVC SCH ×2 (02:13→08:53)
[2022-03-18] MEDS: Pantoprazole 40 MG in 0.9 % Sodium Chloride Mini Bag 100 ML IVC SCH ×2 (03:42→08:54)
[2022-03-18] MEDS ORDERED: Venlafaxine XR (24 HR) 150 MG CAP.ER.24H PO SCH (09:00)
[2022-03-18] MEDS ORDERED: lisinopriL 5 MG TABLET PO SCH (09:00)
[2022-03-18] MEDS ORDERED: Metoprolol XL (24 HR) Succ 25 MG TAB.ER.24H PO SCH (09:00)
[2022-03-18 11:30] LABS: Hematocrit 25.7 % (37.5-50.1); Hemoglobin 8.3 g/dL (12.9-16.9)
[2022-03-18 15:01] VITALS: BP 108/68; PULSE 79; TEMP 98; O2SAT 96
[2022-03-18] MEDS ORDERED: ARIPiprazole 5 MG TABLET PO SCH (21:00)
== END 2022-03-18 16:42 | disposition home or self-care (01) | DRG 369 ==
LOC: EMEROOARM 20:07 → 3ANU 20:07 → EMEROOARM 23:46 → SUATTDRO 03-17 00:55 → 3ANU 03-17 00:57
PROVIDERS: ADMIT Internal Medicine; ATTEND Internal Medicine